=== PATIENT | male | born 1940 | race Caucasian/White ===

== ENCOUNTER 2019-10-04 20:22 | Inpatient (IN) | payer MEDICARE, SELFPAY ==
--- NOTE | ~2019-10-04 | US_ITS ---
EXAMINATION: US venous doppler [facility] DATE: 10/05/2019 09:49 INDICATION: Left calf swelling. TECHNIQUE: Grayscale ultrasound images without and with compression and Doppler ultrasound images of the bilateral lower extremity veins were obtained. COMPARISON: None. FINDINGS: The visualized portions of right common femoral vein, profunda (deep) femoral vein, femoral vein, pop liteal vein, peroneal veins, posterior tibial veins, and greater saphenous vein outflow are patent. S ubcutaneous edema is noted. The visualized portions of left common femoral vein, profunda femoral vein, femoral vein, popliteal v ein, peroneal veins, posterior tibial veins, and greater saphenous vein outflow are patent. Subcutane ous edema is noted. IMPRESSION: 1. No deep venous thrombosis. Reviewed, dictated and finalized at location A.
[2019-10-04 20:29] VITALS: BP 121/44; PULSE 94; RESP 18; TEMP 37.6; O2SAT 95
--- NOTE | 2019-10-04 20:55 | ED.EXTPRO ---
HPI - Extremity Problem General Chief complaint: Extremity Problem,Nontraumatic Stated complaint: left leg pain/sore/swelling/red Time Seen by Provider: 10/04/19 20:26 Source: old records reviewed History of Present Illness HPI Narrative: Patient presents emergency department from home via EMS for swelling and redness to the left lower leg. Patient states symptoms been progressively worsening over the past 2 weeks. He notes redness with a few small open wounds over the left lower leg. States that there is some pain to this area. He denies any fevers or chills chest pain shortness of breath or any other symptoms. The patient is on Xarelto for a history of atrial fibrillation which she has been taking. Related Data Home Medications Medication Instructions Recorded Confirmed furosemide 40 mg tablet 40 mg PO DAILY 05/26/19 10/04/19 quetiapine 12.5 mg PO BID PRN 10/04/19 10/04/19 Allergies Allergy/AdvReac Type Severity Reaction Status Date / Time No Known Allergies Allergy Verified 10/04/19 23:10 Review of Systems Review of Systems: Narrative: Gen.: Denies fevers or chills ENT: Denies congestion Respiratory: Denies shortness of breath or cough CV: Denies chest pain or palpitations GI: Denies abdominal pain nausea, emesis or diarrhea Musculoskeletal: Reports swelling of the leg Neuro: Denies numbness, tingling, weakness or focal weakness Skin: See HPI Except as documented, all other systems reviewed and negative PMF Past Medical History Medical History (Updated 10/05/19 @ 01:11 by Cameron Sanders DO) Afib Asbestos exposure CHF (congestive heart failure) Current use of half-way anticoagulation History of CVA (cerebrovascular accident) HTN (hypertension) Type 2 diabetes mellitus without complications Surgical History Surgical History (Updated 10/05/19 @ 00:31 by Yandel Islas MD) History of appendectomy Family History Family History Sibling Family history of lung cancer Social History Social History Smoking packs per day: 0.5 Smoking cigarettes per day: 10.0 Years smoked: 3 Smoking pack-years: 1.50 Smoking status: Former smoker Tobacco type: cigarettes Smoking end date: 03/29/1959 Alcohol intake: current Drinks per week: 14 Substance use: never Substance use type: does not use Gender identity (if verbalized by the patient): Male Spiritual care concerns: No Exam Narrative: Exam Narrative: APPEARANCE: No acute distress, nontoxic, resting in bed EYES: EOMI HEENT: Normocephalic, atraumatic, OMM RESPIRATORY: No respiratory distress Clear to auscultation bilaterally with no rhonchi wheezing or rales. CARDIOVASCULAR: Regular rate and rhythm without murmurs rubs or gallops. ABDOMINAL: Soft, nontender, nondistended, no rebound or guarding MUSCULOSKELETAl: Moves all extremities. No clubbing, cyanosis 3+ edema in the left lower extremity NEURO: Awake and alert. Following commands, speech normal, no focal deficits SKIN:: Warm, dry. Erythema of the left lower extremity just proximal to the ankle up to just distal to the knee over the anterior medial lateral leg with several small superficial open wounds PSYCHIATRIC: Normal affect/mood, Course Course Emergency Course: Discussed with Dr. Islas presentation work-up. Agrees admission at this time Discussed with patient and family results of workup and diagnosis. Discussed need for admission. Patient and family understand and agree to current treatment plan Vital Signs Vital signs: Vital Signs Temperature 99.6 F 10/04/19 20:29 Pulse Rate 94 10/04/19 20:29 Respiratory Rate 18 10/04/19 20:29 Blood Pressure 121/44 L 10/04/19 20:29 Pulse Oximetry 95 10/04/19 20:29 Temperature 98.4 F 10/04/19 22:46 Pulse Rate 79 10/04/19 22:46 Respiratory Rate 16 10/04/19 22:46 Blood Pressure 145/86 H 10/04/19 2
[2019-10-04 21:05] LABS: Basophils Absolute Auto 0.1 K/mm3 (0.0-0.1); Eosinophils Absolute Auto 0.3 K/mm3 (0-0.3); Eosinophils Percent Auto 4.3 % (0-4.4); Hematocrit 41.1 % (42.0-52.0); Immature Granulocyte Absolute 0.04 K/mm3 (0.00-0.031); Immature Granulocyte Percent A 0.7 % (0-0.5); Lymphocytes Absolute Auto 1.33 K/mm3 (0.9-3.2); Lymphocytes Percent Auto 21.8 % (18.3-44.2); Mean Corpuscular HGB Conc 34.1 g/dl (32-36); Mean Corpuscular Hemoglobin 32.7 pg (26-34); Mean Platelet Volume 10.9 fl (7.4-10.4); Monocytes Absolute Auto 0.8 K/mm3 (0.1-0.6); Monocytes Percent Auto 13.4 % (2.6-8.5); Neutrophils Absolute Auto 3.6 K/mm3 (1.3-6.7); Neutrophils Percent Auto 58.8 % (45.5-73.1); Platelet Count Result 181 k/mm3 (150-375); Red Blood Count 4.28 M/mm3 (4.6-6.20); Red Cell Distribution Width 13.6 % (11.5-14.5); White Blood Count 6.1 K/mm3 (4.5-10.0)
[2019-10-04 21:15] LABS: INR 1.7; Prothrombin Time 19.8 Seconds (11.1-14.7)
[2019-10-04 21:16] LABS: Lactic Acid Reflex 3.7 mmol/L (0.7-2.1)
[2019-10-04 21:17] LABS: Alanine Aminotransferase 24 U/L (4-50); Albumin Level 4.2 g/dL (3.5-5.1); Alkaline Phosphatase 79 U/L (38-126); Aspartate Amino Transferase 32 U/L (17-59); Bilirubin,Total 0.6 mg/dL (0.2-1.3); Blood Urea Nitrogen 17 mg/dL (9-20); Calcium 8.9 mg/dL (8.4-10.2); Carbon Dioxide 24 mmol/L (22-30); Chloride 101 mmol/L (98-107); Estimated CRCL calculation 81 ml/min; Estimated Glomerular Filt Rate > 60; Glucose 207 mg/dL (75-110); Sodium 136 mmol/L (137-145)
[2019-10-04] MEDS: SODIUM CHLORIDE 0.9% IV 1,000 ML 999 ML IV CONT (22:08)
--- NOTE | 2019-10-04 22:35 | ADMGEN ---
This patient, Alberto Rasmussen, was admitted to 3 [facility] Surg Room 303-01. Patient/family oriented to hospital policies and general routines including ID bracelet, bed and alarms, visiting hours, pain management, procedures, bathroom and other care routines, personal items, smoking policy, room service/diet, and visiting hours. Valuables list has been completed. Information on how to activate the Rapid Response Team has been discussed. Patient/Family are encouraged to report perceived risks to care and to ask questions if they do not understand what they are told or what they should do.
[2019-10-04 22:40] VITALS: BP 148/58; PULSE 62; RESP 20; TEMP 36.6; O2SAT 96
[2019-10-04 22:46] VITALS: BP 145/86; PULSE 79; RESP 16; TEMP 36.9; O2SAT 95
[2019-10-05 00:03] LABS: Reflex Lactic Acid Yes or No Add Lactic
--- NOTE | 2019-10-05 00:19 | PM.IMHP ---
H&P: HPI History of Present Illness Chief complaint: Left lower extremity cellulitis, lactic acidosis Narrative: This is a pleasant 78 year old Diabetic male with known paroxsymal atrial fibrillation on chronic Eliquis therapy, CHF, and HTN who presented to the hospital with a complaint of chronic LE swelling which he states worsened over the past month. The patient has not been able to sleep recently due to his increased discomfort of his legs. He reports that his left leg is more swollen and red compared to his right leg. The patient has not had any fever, chills, cough, shortness of breath, chest pain, abdominal pain, dysuria, hematuria, rectal bleeding or focal neurological symptoms. She was evaluated in the ER tonight and found to have an elevated lactic acid of 3.7. The patient was started on Ancef for possible cellulitis. He has no other complaints. Review of Systems Review of Systems: All systems reviewed & are unremarkable except as noted in HPI and below PMFSH Past Medical History Medical History Afib Asbestos exposure CHF (congestive heart failure) Current use of group home anticoagulation History of CVA (cerebrovascular accident) HTN (hypertension) Type 2 diabetes mellitus without complications Surgical History Surgical History History of appendectomy Family History Family History Sibling Family history of lung cancer Social History Social History Smoking packs per day: 0.5 Smoking cigarettes per day: 10.0 Years smoked: 3 Smoking pack-years: 1.50 Smoking status: Former smoker Tobacco type: cigarettes Smoking end date: 03/29/1959 Alcohol intake: current Drinks per week: 14 Substance use: never Substance use type: does not use Gender identity (if verbalized by the patient): Male Spiritual care concerns: No Meds Home Medications and Allergies Home Medications Medication Instructions Recorded Confirmed Type furosemide 40 mg tablet 40 mg PO DAILY 05/26/19 10/04/19 History diltiazem HCl 240 mg capsule,24 240 mg PO DAILY #90 cap 06/05/19 10/04/19 Rx hr,extended release rivaroxaban 20 mg tablet 20 mg PO QPM #90 tablet 06/05/19 10/04/19 Rx potassium chloride 20 mEq 20 meq PO DAILY #90 tablet 07/03/19 10/04/19 Rx tablet,extended release lisinopril 5 mg tablet 5 mg PO DAILY #90 tablet 08/03/19 10/04/19 Rx quetiapine 12.5 mg PO BID PRN 10/04/19 10/04/19 History Allergies Allergy/AdvReac Type Severity Reaction Status Date / Time No Known Allergies Allergy Verified 10/04/19 23:10 Vital Signs Vital Signs - 24 hr 10/04/19 20:29 10/04/19 22:40 10/04/19 22:46 Temperature 37.6 C 36.6 C 36.9 C Pulse Rate 94 62 79 Respiratory Rate 18 20 16 Blood Pressure 121/44 L 148/58 H 145/86 H Pulse Oximetry 95 96 95 Exam Const: General: cooperative, no acute distress, alert and awake Nutritional Appearance: obese morbidly obese Orientation/consciousness: patient oriented x3 HENMT: Head: normal to inspection General nose exam: Normal external nose present Face and sinus: normal facial exam Mouth: Yes Normal oral and palatal mucosa present and Yes oropharynx normal Eyes: Pupils: Equal, round and reactive pupils present EOM: EOMs intact bilaterally Neck: Neck: supple and no JVD Thyroid: thyroid normal Lymphatic: lymphadenopathy not noted Resp: Effort & Inspection: normal respiratory effort Auscultation: clear to auscultation bilaterally Cardio: Rate: regular rate Rhythm: regular rhythm Heart sounds: no murmurs GI: Inspection: normal to inspection Auscultation: normal bowel sounds Skin: General skin exam: erythema (B/L lower extremities++ ) and other ([place] appearance of LE b/L++ ) Neuro: General: patient oriented x3 Cranial nerves: Yes CN's
[2019-10-05] MEDS: SODIUM CHLORIDE 0.9% IV 1,000 ML 80 ML IV CONT ×2 (00:34→14:06)
[2019-10-05 00:49] LABS: Lactic Acid 2.1 mmol/L (0.7-2.1)
[2019-10-05] MEDS: QUEtiapine FUMARATE 12.5 MG TABLET PO ×2 (00:53→21:13)
[2019-10-05 06:00] VITALS: BP 108/46; PULSE 77; RESP 18; TEMP 36.6; O2SAT 97
[2019-10-05 06:40] LABS: Basophils Absolute Auto 0.1 K/mm3 (0.0-0.1); Basophils Percent Auto 0.9 % (0.2-1.2); Eosinophils Absolute Auto 0.3 K/mm3 (0-0.3); Hematocrit 39.4 % (42.0-52.0); Hemoglobin 13.4 g/dL (14.0-18.0); Immature Granulocyte Absolute 0.03 K/mm3 (0.00-0.031); Immature Granulocyte Percent A 0.5 % (0-0.5); Lymphocytes Absolute Auto 2.06 K/mm3 (0.9-3.2); Mean Corpuscular Hemoglobin 32.5 pg (26-34); Mean Corpuscular Volume 95.6 fl (80-100); Monocytes Absolute Auto 0.8 K/mm3 (0.1-0.6); Neutrophils Absolute Auto 3.2 K/mm3 (1.3-6.7); Neutrophils Percent Auto 49.6 % (45.5-73.1); Platelet Count Result 177 k/mm3 (150-375); Red Blood Count 4.12 M/mm3 (4.6-6.20); Red Cell Distribution Width 13.6 % (11.5-14.5); White Blood Count 6.4 K/mm3 (4.5-10.0)
[2019-10-05 06:50] LABS: Blood Urea Nitrogen 17 mg/dL (9-20); Calcium 8.4 mg/dL (8.4-10.2); Carbon Dioxide 28 mmol/L (22-30); Chloride 102 mmol/L (98-107); Estimated CRCL calculation 90 ml/min; Estimated Glomerular Filt Rate > 60; Glucose 136 mg/dL (75-110); Potassium 4.1 mmol/L (3.4-5.0); Sodium 136 mmol/L (137-145)
[2019-10-05 08:43] LABS: Glucose Point of Care 137 (65-105)
[2019-10-05 09:22] VITALS: BP 131/46; PULSE 67; O2SAT 99
[2019-10-05] MEDS: POTASSIUM CHLORIDE 20 MEQ TABLET.ER PO (09:25)
[2019-10-05] MEDS: lisinopriL 5 MG TABLET PO (09:25)
[2019-10-05] MEDS: FUROSEMIDE INJ 40 MG/4 ML VIAL 20 MG IV PUSH (10:35)
[2019-10-05 14:00] VITALS: BP 116/48; PULSE 101; RESP 18; TEMP 36.1; O2SAT 98
--- NOTE | 2019-10-05 14:24 | PM.IMPN ---
Progress Note: A&P Assessment and Plan (1) Leg edema: Code(s): R60.0 - Localized edema Status: Acute Assessment and Plan: r/o RLE cellultiis/DVT/edema - LE edema/erythema appear to be chronic as he has had this for over a month now. The patient has been started on IV antibiotics. Check LE doppler U/S in am. The pateint's RLE edema/erythema is likely secondary to chronic venous stasis. We will de-escalate antibiotics if lactic acid normalizes and the patient does not develope any worsening signs or symptoms of infection. 10/05/19 14:24 Patient is 78-year-old male with a history of chronic atrial fibrillation on Xarelto present presented emergency department with a complaint of bilateral lower extremity edema and erythema patient states his symptoms persisting for 2 weeks will swelling, blistering with some open wound and now getting worse concern the patient may have infection to his left lower leg presented emergency department further evaluation, patient started on Ancef, patient is a bilateral lower extremity edema concern patient may have exacerbation of CHF will switch his oral Lasix to IV Lasix, do cardiac echo and consult cake wrapper for further recommendation, patient on Xarelto for AFib concerned patient may have a DVT lower extremity Doppler was done which is negative (2) Elevated lactic acid level: Code(s): R79.89 - Other specified abnormal findings of blood chemistry Status: Acute Assessment and Plan: Check reflex lactic acid. Trending down (3) Type 2 diabetes mellitus without complications: Qualifiers: Diabetes mellitus fdc insulin use: without fdc use Qualified Code(s): E11.9 - Type 2 diabetes mellitus without complications Code(s): E11.9 - Type 2 diabetes mellitus without complications Status: Chronic Assessment and Plan: Accuchecks, SSI Coverage, Hypoglycemic protocol. (4) HTN (hypertension): Qualifiers: Hypertension type: unspecified Qualified Code(s): I10 - Essential (primary) hypertension Code(s): I10 - Essential (primary) hypertension Status: Chronic Assessment and Plan: Monitor blood pressure. Continue Lisinopril. (5) Afib: Qualifiers: Atrial fibrillation type: unspecified Qualified Code(s): I48.91 - Unspecified atrial fibrillation Code(s): I48.91 - Unspecified atrial fibrillation Status: Chronic Assessment and Plan: Continue Diltiazem and Xarelto. (6) CHF (congestive heart failure): Qualifiers: Heart failure type: unspecified Heart failure chronicity: chronic Qualified Code(s): I50.9 - Heart failure, unspecified Code(s): I50.9 - Heart failure, unspecified Status: Chronic Assessment and Plan: Continue Lasix therapy. Subjective Date/time seen: 10/05/19 14:24 Patient is 78-year-old male with a history of chronic atrial fibrillation on Xarelto present presented emergency department with a complaint of bilateral lower extremity edema and erythema patient states his symptoms persisting for 2 weeks will swelling, blistering with some open wound and now getting worse concern the patient may have infection to his left lower leg presented emergency department further evaluation, patient started on Ancef, patient is a bilateral lower extremity edema concern patient may have exacerbation of CHF will switch his oral Lasix to IV Lasix, do cardiac echo and consult cake wrapper for further recommendation, patient on Xarelto for AFib concerned patient may have a DVT lower extremity Doppler was done which is negative Review of Systems Review of Systems: All systems reviewed & are unremarkable except as noted in HPI and below Exam Narrative: Exam Narrative: Morbidly obese Const: General: comfortable and no acute distress HENMT: General nose exam: Normal nares present Eyes: Sclera: sclerae normal Neck: Neck: supple Resp: Other:
[2019-10-05 17:10] LABS: Glucose Point of Care 165 (65-105)
[2019-10-05 17:51] LABS: Glucose Point of Care 179 (65-105)
[2019-10-05] MEDS: RIVAROXABAN 20 MG TABLET PO (17:51)
[2019-10-05] MEDS: MELATONIN 3 MG TABLET PO (21:13)
[2019-10-05 22:00] VITALS: BP 112/52; PULSE 49; RESP 20; TEMP 36; O2SAT 97
[2019-10-05 22:45] LABS: Glucose Point of Care 150 (65-105)
--- NOTE | 2019-10-06 | ECHO_ITS ---
Patient Info Name: Alberto Rasmussen Age: 78 years : 1940 Gender: Male Ht: 71 in Wt: 291 lbs BSA: 2.63 m2 HR: 50 bpm BP: 104 / 42 mmHg Heart Rhythm: Atrial Fibrillation Technical Quality: Poor Exam Date: 10/06/2019 11:27 AM Exam Location: [facility] Pulmonary Patient Status: Inpatient Admit Date: 10/05/2019 Staff Ordering Physician: Cheikh Ornelas MD [employer] Operator: Zak Swanson, STEFFENCS, RT Attending Provider: Yandel Islas MD Exam Type: CA echo doppler color flow Study Info Indications I50.9 - Heart failure, unspecified Complete two-dimensional, color flow and Doppler transthoracic echocardiogram is performed with contrast to opacify the left ventricle and to improve the deliniation of the left ventricle endocardial borders. Summary 1. Left ventricular chamber dimension is normal. 2. Left ventricular systolic function is normal, estimated at 60-65%. 3. There is mild aortic valve regurgitation. 4. There is mild mitral valve regurgitation. 5. Severe biatrial dilation. 6. Compared with prior exam no significant change PA pressures on this exam are not elevated. Left Ventricle Left ventricular chamber dimension is normal. Left ventricular systolic function is normal, estimated at 60-65%. Right Ventricle Right ventricular chamber dimension is mildly enlarged. Left Atria Left atrial chamber dimension is severely enlarged. Right Atria Right atrial chamber dimension is severely enlarged. Aortic Valve The aortic valve is trileaflet. There is mild aortic valve sclerosis. There is mild aortic valve regurgitation. Pulmonic Valve The pulmonic valve is not well visualized. Mitral Valve The mitral valve has normal leaflets. There is mild mitral valve regurgitation. Tricuspid Valve The tricuspid valve leaflets are not well visualized. Pericardium/Pleural The pericardium appears normal. Aorta The aortic root size at the sinus of Valsalva is normal. Left Ventricular Outflow Tract Name Value Normal LVOT 2D LVOT Diameter 2.3 cm LVOT Doppler LVOT Peak Gradient 5 mmHg LVOT Mean Gradient 2 mmHg LVOT VTI 25 cm LVOT VTI/AV VTI Ratio 0.9 LVOT Stroke Volume 107 ml LVOT CO 6.0 l/min LVOT CI 2.3 l/min/m2 Pulmonic Valve Name Value Normal PV Doppler PV Peak Gradient 8 mmHg Mitral Valve Name Value Normal MV Doppler MV Decel Hettinger 359 cm/s2
[2019-10-06] MEDS: SODIUM CHLORIDE 0.9% IV 1,000 ML 80 ML IV CONT (03:07)
[2019-10-06 06:00] VITALS: BP 104/42; PULSE 109; RESP 20; TEMP 35.9; O2SAT 94
[2019-10-06 06:28] LABS: Hematocrit 39.9 % (42.0-52.0); Hemoglobin 13.4 g/dL (14.0-18.0); Mean Corpuscular HGB Conc 33.6 g/dl (32-36); Mean Corpuscular Hemoglobin 32.5 pg (26-34); Mean Corpuscular Volume 96.8 fl (80-100); Mean Platelet Volume 11.3 fl (7.4-10.4); Platelet Count Result 171 k/mm3 (150-375); Red Blood Count 4.12 M/mm3 (4.6-6.20); Red Cell Distribution Width 13.7 % (11.5-14.5); White Blood Count 7.1 K/mm3 (4.5-10.0)
[2019-10-06 06:38] LABS: Blood Urea Nitrogen 18 mg/dL (9-20); Calcium 8.3 mg/dL (8.4-10.2); Carbon Dioxide 26 mmol/L (22-30); Chloride 104 mmol/L (98-107); Estimated CRCL calculation 81 ml/min; Estimated Glomerular Filt Rate > 60; Glucose 137 mg/dL (75-110); Potassium 4.1 mmol/L (3.4-5.0); Sodium 136 mmol/L (137-145)
[2019-10-06 08:00] VITALS: BP 118/52; PULSE 50
[2019-10-06] MEDS: POTASSIUM CHLORIDE 20 MEQ TABLET.ER PO (08:15)
[2019-10-06] MEDS: lisinopriL 5 MG TABLET PO (08:16)
[2019-10-06] MEDS: FUROSEMIDE INJ 40 MG/4 ML VIAL IV PUSH (08:16)
[2019-10-06 08:37] LABS: Glucose Point of Care 140 (65-105)
[2019-10-06] MEDS: PERFLUTREN LIPID MICROSPHERES 1.5 ML VIAL DILUTED TO 10 ML TOTAL VOLUME IV PUSH (11:50)
[2019-10-06 12:46] LABS: Glucose Point of Care 150 (65-105)
--- NOTE | 2019-10-06 13:27 | PM.CNCAR ---
Assessment and Plan Additional Plan 78-year-old man with chronic permanent atrial fibrillation. For some reason I believe through an error at the PCP his diltiazem has been continued which I discontinued almost 1 year ago. 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 I will stop diltiazem at this time. An echocardiogram was requested for further evaluation of this was done this morning the results of that are pending at the time of this dictation. Systemic anticoagulation was Xarelto was appropriate and this should be continued. Ryan Turcios MD [facility] History of Present Illness History of Present Illness Consult date/time: 10/06/19 13:27 Consult reason: atrial fibrillation Reason For Visit: Left lower extremity cellulitis, lactic acidosis Narrative: This is a 78-year-old man with a history of chronic permanent atrial fibrillation who I follow in the office for a number of years. I seem seeing him today at the hospital at the request of the hospitalist. He came into the hospital this about 48 hours ago for treatment of what appears to be left lower extremity cellulitis and has been on antibiotics for that. He does have bilateral edema chronic appearing worse on the left than on the right and for this reason he was hospitalized. The patient has a history of chronic atrial fibrillation for number of years. I was seeing him in the office and treating him with rate control and anticoagulation. He was on Coumadin and then eventually shifted to Xarelto in more recent years. He was heart rate controlled with diltiazem. Over the years I have been reducing the dose of his diltiazem because as he has aged he has developed a nub seen I will AV node dysfunction where he no longer appeared to require medication for rate control. His last appointment with me in the office was in October of 2018 at which time I stopped the diltiazem altogether. He had a heart rate in the 60s and 70s with only 120 mg on board and so at that point it appeared clear to me he did not require this for rate control any longer. For reasons that are not clear to me, presumably erroneously he is back on diltiazem at 240 mg per day. It is the patient's recollection that this was resumed or renewed through his PCP appointment. He continues to take Xarelto for heart rate control and otherwise feels quite well. He does not have any symptoms of shortness of breath chest pain palpitations orthopnea or PND. His previous evaluation by echocardiogram has shown evidence of normal left ventricular systolic function, biatrial dilation and evidence of at least moderately elevated pulmonary artery pressures. He does carry the diagnosis of asbestosis which I am sure contributes to this as well. He is not on telemetry at this time Review of Systems Constitutional: Constitutional: Reports no additional constitutional complaints Eyes: Eyes: Reports no additional eye complaints ENT: Reports system reviewed and no additional complaints, except as documented Cardiovascular: Cardiovascular: Reports as per HPI Respiratory: Respiratory: Reports no additional respiratory complaints Gastrointestinal: Gastrointestinal: Reports no additional gastrointestinal complaints Musculoskeletal: Comments: Lower extremity edema as detailed above Neurologic: Reports system reviewed and no additional complaints, except as documented Endocrine: Endocrine: Reports no additional endocrine complaints Hematologic/Lymphatic: Hematologic/Lymphatic: Reports no additional hematologic/lymphatic complaints Allergic/Immunologic: Allergic/Immunologic: Reports no additional allergic/immunologic complaints PMFSH Past Medical History Medical History Afib Asbestos exposure CHF (congestive heart failure) Current use of keno terminal operator anticoagulation History of CVA
[2019-10-06 14:00] VITALS: BP 123/44; PULSE 63; RESP 18; TEMP 36.2; O2SAT 98
--- NOTE | 2019-10-06 16:10 | PM.IMPN ---
Progress Note: A&P Assessment and Plan (1) Leg edema: Code(s): R60.0 - Localized edema Status: Acute Assessment and Plan: r/o RLE cellultiis/DVT/edema - LE edema/erythema appear to be chronic as he has had this for over a month now. The patient has been started on IV antibiotics. Check LE doppler U/S in am. The pateint's RLE edema/erythema is likely secondary to chronic venous stasis. We will de-escalate antibiotics if lactic acid normalizes and the patient does not develope any worsening signs or symptoms of infection. 10/06/19 16:1 Patient is 78-year-old male with a history of chronic atrial fibrillation on Xarelto present presented emergency department with a complaint of bilateral lower extremity edema and erythema patient states his symptoms persisting for 2 weeks will swelling, blistering with some open wound and now getting worse concern the patient may have infection to his left lower leg presented emergency department further evaluation, patient started on Ancef, patient is a bilateral lower extremity edema concern patient may have exacerbation of CHF will switch his oral Lasix to IV Lasix, do cardiac echo and consult marzipan molder for further recommendation, patient on Xarelto for AFib concerned patient may have a DVT lower extremity Doppler was done which is negative, today patient was seen by his Cardiology stop the diltiazem as patient does not need rate controlled medication and this may have contributed lower extremity edema, his cardiac echo is essentially normal, will continue to diurese patient gently, patient is feeling better swelling in his lower extremities improved as well as cellulitis, denies any chest pain palpitation fever or chills (2) Elevated lactic acid level: Code(s): R79.89 - Other specified abnormal findings of blood chemistry Status: Acute Assessment and Plan: Check reflex lactic acid. Trending down (3) Type 2 diabetes mellitus without complications: Qualifiers: Diabetes mellitus terminal clerk insulin use: without residential use Qualified Code(s): E11.9 - Type 2 diabetes mellitus without complications Code(s): E11.9 - Type 2 diabetes mellitus without complications Status: Chronic Assessment and Plan: Accuchecks, SSI Coverage, Hypoglycemic protocol. (4) HTN (hypertension): Qualifiers: Hypertension type: unspecified Qualified Code(s): I10 - Essential (primary) hypertension Code(s): I10 - Essential (primary) hypertension Status: Chronic Assessment and Plan: Monitor blood pressure. Continue Lisinopril. (5) Afib: Qualifiers: Atrial fibrillation type: unspecified Qualified Code(s): I48.91 - Unspecified atrial fibrillation Code(s): I48.91 - Unspecified atrial fibrillation Status: Chronic Assessment and Plan: Continue Diltiazem and Xarelto. (6) CHF (congestive heart failure): Qualifiers: Heart failure type: unspecified Heart failure chronicity: chronic Qualified Code(s): I50.9 - Heart failure, unspecified Code(s): I50.9 - Heart failure, unspecified Status: Chronic Assessment and Plan: Continue Lasix therapy. Subjective Date/time seen: 10/06/19 16:1 Patient is 78-year-old male with a history of chronic atrial fibrillation on Xarelto present presented emergency department with a complaint of bilateral lower extremity edema and erythema patient states his symptoms persisting for 2 weeks will swelling, blistering with some open wound and now getting worse concern the patient may have infection to his left lower leg presented emergency department further evaluation, patient started on Ancef, patient is a bilateral lower extremity edema concern patient may have exacerbation of CHF will switch his oral Lasix to IV Lasix, do cardiac echo and consult marzipan molder for further recommendation, patient on Xarelto for AFib concerned patient may have a DVT lower e
[2019-10-06] MEDS: RIVAROXABAN 20 MG TABLET PO (17:33)
[2019-10-06 17:57] LABS: Glucose Point of Care 158 (65-105)
[2019-10-06] MEDS: MELATONIN 3 MG TABLET PO (21:01)
[2019-10-06] MEDS: QUEtiapine FUMARATE 12.5 MG TABLET PO (21:01)
[2019-10-06 22:00] VITALS: BP 125/46; PULSE 56; RESP 20; TEMP 37; O2SAT 96
[2019-10-06 22:05] LABS: Glucose Point of Care 189 (65-105)
[2019-10-07 06:00] VITALS: BP 132/51; PULSE 61; RESP 18; TEMP 36.4; O2SAT 96
[2019-10-07 06:18] LABS: Hematocrit 40.7 % (42.0-52.0); Hemoglobin 13.8 g/dL (14.0-18.0); Mean Corpuscular HGB Conc 33.9 g/dl (32-36); Mean Corpuscular Hemoglobin 32.5 pg (26-34); Mean Corpuscular Volume 95.8 fl (80-100); Platelet Count Result 166 k/mm3 (150-375); Red Blood Count 4.25 M/mm3 (4.6-6.20); Red Cell Distribution Width 13.5 % (11.5-14.5); White Blood Count 6.6 K/mm3 (4.5-10.0)
[2019-10-07 06:36] LABS: Potassium 3.8 mmol/L (3.4-5.0)
[2019-10-07 06:45] LABS: Blood Urea Nitrogen 19 mg/dL (9-20); Calcium 8.6 mg/dL (8.4-10.2); Carbon Dioxide 25 mmol/L (22-30); Chloride 107 mmol/L (98-107); Estimated CRCL calculation 81 ml/min; Estimated Glomerular Filt Rate > 60; Glucose 136 mg/dL (75-110); Sodium 137 mmol/L (137-145)
[2019-10-07] MEDS: lisinopriL 5 MG TABLET PO (08:18)
[2019-10-07] MEDS: FUROSEMIDE INJ 40 MG/4 ML VIAL IV PUSH (08:18)
[2019-10-07] MEDS: POTASSIUM CHLORIDE 20 MEQ TABLET.ER PO (08:18)
[2019-10-07 08:35] LABS: Glucose Point of Care 146 (65-105)
--- NOTE | 2019-10-07 10:37 | PM.PNCARD ---
Progress Note: A&P Additional Plan 78-year-old man with chronic atrial fibrillation. 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 For this reason I stopped the diltiazem prescription yesterday I had taken him off that medication almost a year ago. Systemic anticoagulation with Xarelto is appropriate and will be continued. No other cardiac recommendations no cardiac reason he cannot be discharged Ryan Turcios MD [facility] Subjective Date/time seen: Date of service: 10/07/19 10:37 Interval history: Follow-up visit in 78-year-old man with chronic atrial fibrillation. Patient is asymptomatic dressed in his street clothes preparing for discharge Exam Const: General: comfortable and no acute distress HENMT: Mouth: Yes moist mucous membranes Eyes: Sclera: sclerae normal Pupils: Equal, round and reactive pupils present Neck: Neck: supple and no JVD Resp: Effort & Inspection: normal respiratory effort Auscultation: clear to auscultation bilaterally Cardio: Rate: regular rate Rhythm: abnormal rhythm irregularly irregular GI: Auscultation: normal bowel sounds Other: Abdomen obese but benign Skin: General skin exam: normal color Neuro: Cognition (Neuro): normal cognition Extrem: General: normal to inspection Objective Data Vital Signs Vital Signs: Vital Signs - 24 hr 10/06/19 14:00 10/06/19 22:00 10/07/19 06:00 Temperature 36.2 C L 37.0 C 36.4 C Pulse Rate 63 56 L 61 Respiratory Rate 18 20 18 Blood Pressure 123/44 L 125/46 L 132/51 L Pulse Oximetry 98 96 96 Intake/Output Intake/Output: Intake & Output 10/04/19 10/05/19 10/06/19 10/07/19 23:59 23:59 23:59 23:59 Intake Total 50 2150 2466 600 Output Total 2850 800 Balance 50 2150 384 -200 Meds/Results Medications: Active Medications Generic Name Dose Route Start Last Admin Trade Name Freq PRN Reason Stop Dose Admin Dextrose 12.5 gm 10/05/19 00:09 Dextrose 50% Syringe IV PUSH PRN PRN Hypoglycemia Protocol Furosemide 40 mg 10/06/19 09:00 10/07/19 08:18 Lasix Inj IV PUSH 40 mg DAILY HOA Administration Glucagon 1 mg 10/05/19 00:09 Glucagon For Inj IM PRN PRN Hypoglycemia Protocol Glucose 15 gm 10/05/19 00:09 Glutose 15 PO PRN PRN Hypoglycemia Protocol Cefazolin Sodium 1 gm in 50 mls @ 100 mls/hr 10/05/19 06:00 10/07/19 05:50 Ancef 1 Gm/D5w 50 Ml Pm IVPB Infused Q8HR HOA Infusion Dextrose 1,000 mls @ 100 mls/hr 10/05/19 00:09 Dextrose 5% 1,000 Ml IVPB PRN PRN Hypoglycemia Protocol Insulin Aspart 2 - 5 units 10/05/19 08:00 10/07/19 08:18 Novolog SUB-Q Not Given TIDWM HOA Protocol Lisinopril 5 mg 10/05/19 09:00 10/07/19 08:18 Prinivil PO 5 mg DAILY HOA Administration Melatonin 3 mg 10/05/19 20:37 10/06/19 21:01 Melatonin PO 3 mg HS PRN Administration Sleep Potassium Chloride 20 meq 10/05/19 08:00 10/07/19 08:18 Kcl Tablet PO 20 meq DAILY@0800 HOA Administration Quetiapine Fumarate 12.5 mg 10/05/19 00:43 10/06/19 21:01 Seroquel PO 12.5 mg BID PRN Administration Agitation Rivaroxaban 20 mg 10/05/19 18:00 10/06/19 17:33 Xarelto PO 20 mg QPM HOA Administration Radiology Results: ITS Impressions Venous Doppler Study 10/05/19 09:54 IMPRESSION: 1. No deep venous thrombosis. Labs Labs: Laboratory Results - last 24 hr 10/06/19 10/06/19 10/06/19 12:38 17:55 21:05 WBC RBC Hgb Hct MCV MCH MCHC RDW Plt Count MPV Sodium Potassium Chloride Carbon Dioxide BUN Creatinine Estim Creat Clear Calc Estimated GFR Glucose POC Capillary Glucose 150 H 158 H 189 H Calcium 10/07/19 10/07/19 10/07/19 05:41 05:41 08:17 WBC 6.6 RBC 4.25 L Hgb 13.8 L Hct
--- NOTE | 2019-10-07 11:54 | PM.IMPN ---
Progress Note: A&P Assessment and Plan (1) Leg edema: Code(s): R60.0 - Localized edema Status: Acute Assessment and Plan: r/o RLE cellultiis/DVT/edema - LE edema/erythema appear to be chronic as he has had this for over a month now. The patient has been started on IV antibiotics. Check LE doppler U/S in am. The pateint's RLE edema/erythema is likely secondary to chronic venous stasis. We will de-escalate antibiotics if lactic acid normalizes and the patient does not develope any worsening signs or symptoms of infection. 10/06/19 16:1 Patient is 78-year-old male with a history of chronic atrial fibrillation on Xarelto present presented emergency department with a complaint of bilateral lower extremity edema and erythema patient states his symptoms persisting for 2 weeks will swelling, blistering with some open wound and now getting worse concern the patient may have infection to his left lower leg presented emergency department further evaluation, patient started on Ancef, patient is a bilateral lower extremity edema concern patient may have exacerbation of CHF will switch his oral Lasix to IV Lasix, do cardiac echo and consult otolaryngology rep for further recommendation, patient on Xarelto for AFib concerned patient may have a DVT lower extremity Doppler was done which is negative, today patient was seen by his Cardiology stop the diltiazem as patient does not need rate controlled medication and this may have contributed lower extremity edema, his cardiac echo is essentially normal, will continue to diurese patient gently, patient is feeling better swelling in his lower extremities improved as well as cellulitis, denies any chest pain palpitation fever or chills (2) Elevated lactic acid level: Code(s): R79.89 - Other specified abnormal findings of blood chemistry Status: Acute Assessment and Plan: Check reflex lactic acid. Trending down (3) Type 2 diabetes mellitus without complications: Qualifiers: Diabetes mellitus detention insulin use: without detention use Qualified Code(s): E11.9 - Type 2 diabetes mellitus without complications Code(s): E11.9 - Type 2 diabetes mellitus without complications Status: Chronic Assessment and Plan: Accuchecks, SSI Coverage, Hypoglycemic protocol. (4) HTN (hypertension): Qualifiers: Hypertension type: unspecified Qualified Code(s): I10 - Essential (primary) hypertension Code(s): I10 - Essential (primary) hypertension Status: Chronic Assessment and Plan: Monitor blood pressure. Continue Lisinopril. (5) Afib: Qualifiers: Atrial fibrillation type: unspecified Qualified Code(s): I48.91 - Unspecified atrial fibrillation Code(s): I48.91 - Unspecified atrial fibrillation Status: Chronic Assessment and Plan: Continue Diltiazem and Xarelto. (6) CHF (congestive heart failure): Qualifiers: Heart failure type: unspecified Heart failure chronicity: chronic Qualified Code(s): I50.9 - Heart failure, unspecified Code(s): I50.9 - Heart failure, unspecified Status: Chronic Assessment and Plan: Continue Lasix therapy. Additional Plan Date of service was 10/04/2019 at 22:00 hrs. Subjective Date/time seen: 10/07/19 11:54 Objective Data Vital Signs Vital Signs: Vital Signs - 24 hr 10/06/19 14:00 10/06/19 22:00 10/07/19 06:00 Temperature 97.1 F L 98.6 F 97.6 F Pulse Rate 63 56 L 61 Respiratory Rate 18 20 18 Blood Pressure 123/44 L 125/46 L 132/51 L Pulse Oximetry 98 96 96 Intake/Output Intake/Output: Intake & Output 10/04/19 10/05/19 10/06/19 10/07/19 23:59 23:59 23:59 23:59 Intake Total 50 2150 2466 840 Output Total 2850 800 Balance 50 2150 -384 40 Meds/Results Medications: Active Medications Generic Name Dose Route Start Last Admin Trade Name Freq PRN Reason Stop Dose Admin Dextrose 12.5 gm 10/05/19 00:09 De
--- NOTE | 2019-10-20 09:04 | PM.DS ---
DS: Admitting Diagnosis Admitting Diagnosis Admitting Diagnosis: Localized edema DS: Discharge Diagnosis Discharge Diagnosis (1) Leg edema: Code(s): R60.0 - Localized edema Status: Acute Assessment and Plan: r/o RLE cellultiis/DVT/edema - LE edema/erythema appear to be chronic as he has had this for over a month now. The patient has been started on IV antibiotics. Check LE doppler U/S in am. The pateint's RLE edema/erythema is likely secondary to chronic venous stasis. We will de-escalate antibiotics if lactic acid normalizes and the patient does not develope any worsening signs or symptoms of infection. 10/06/19 16:1 Patient is 78-year-old male with a history of chronic atrial fibrillation on Xarelto present presented emergency department with a complaint of bilateral lower extremity edema and erythema patient states his symptoms persisting for 2 weeks will swelling, blistering with some open wound and now getting worse concern the patient may have infection to his left lower leg presented emergency department further evaluation, patient started on Ancef, patient is a bilateral lower extremity edema concern patient may have exacerbation of CHF will switch his oral Lasix to IV Lasix, do cardiac echo and consult sample patternmaker for further recommendation, patient on Xarelto for AFib concerned patient may have a DVT lower extremity Doppler was done which is negative, today patient was seen by his Cardiology stop the diltiazem as patient does not need rate controlled medication and this may have contributed lower extremity edema, his cardiac echo is essentially normal, will continue to diurese patient gently, patient is feeling better swelling in his lower extremities improved as well as cellulitis, denies any chest pain palpitation fever or chills (2) Elevated lactic acid level: Code(s): R79.89 - Other specified abnormal findings of blood chemistry Status: Acute Assessment and Plan: Check reflex lactic acid. Trending down (3) Type 2 diabetes mellitus without complications: Qualifiers: Diabetes mellitus halfway insulin use: without rn long term care use Qualified Code(s): E11.9 - Type 2 diabetes mellitus without complications Code(s): E11.9 - Type 2 diabetes mellitus without complications Status: Chronic Assessment and Plan: Accuchecks, SSI Coverage, Hypoglycemic protocol. (4) HTN (hypertension): Qualifiers: Hypertension type: unspecified Qualified Code(s): I10 - Essential (primary) hypertension Code(s): I10 - Essential (primary) hypertension Status: Chronic Assessment and Plan: Monitor blood pressure. Continue Lisinopril. (5) Afib: Qualifiers: Atrial fibrillation type: unspecified Qualified Code(s): I48.91 - Unspecified atrial fibrillation Code(s): I48.91 - Unspecified atrial fibrillation Status: Chronic Assessment and Plan: Continue Diltiazem and Xarelto. (6) CHF (congestive heart failure): Qualifiers: Heart failure type: unspecified Heart failure chronicity: chronic Qualified Code(s): I50.9 - Heart failure, unspecified Code(s): I50.9 - Heart failure, unspecified Status: Chronic Assessment and Plan: Continue Lasix therapy. DS: Summary Hospital Course Reason for hospitalization: Narrative: This is a pleasant 78 year old Diabetic male with known paroxsymal atrial fibrillation on chronic Eliquis therapy, CHF, and HTN who presented to the hospital with a complaint of chronic LE swelling which he states worsened over the past month. The patient has not been able to sleep recently due to his increased discomfort of his legs. He reports that his left leg is more swollen and red compared to his right leg. The patient has not had any fever, chills, cough, shortness of breath, chest pain, abdominal pain, dysuria, hematuria, rectal bleeding or focal neurological symptoms. S
== END 2019-10-07 13:10 | disposition home or self-care (01) | DRG 303 ==
LOC: ANHED 21:58 → ANH3MEDSUR 22:06
PROVIDERS: Admitting Provider Family Medicine; Emergency Provider Emergency Medicine; PCP Family Medicine; Visit Provider Family Medicine
DX: I87.8 Other specified disorders of veins (principal); R60.0 Localized edema; I48.0 Paroxysmal atrial fibrillation; I11.0 Hypertensive heart disease with heart failure; I50.9 Heart failure, unspecified; Z79.01 Long term (current) use of anticoagulants; Z86.73 Personal history of transient ischemic attack (TIA), and cerebral infarction without residual deficits; Z87.891 Personal history of nicotine dependence; E11.9 Type 2 diabetes mellitus without complications; R79.89 Other specified abnormal findings of blood chemistry
CPT/HCPCS: 36415; 80048; 80053; 83605; 85025; 85027; 85610; 85730; 87040; 93306; 93970; 96361; 96365; 96375; 99285; A9270; G0378; J0690; J1940; J7030; Q9957

== ENCOUNTER 2020-06-09 23:47 | Emergency (ER) | payer MEDICARE, SELFPAY ==
[2020-06-09 23:46] VITALS: BP 137/57; PULSE 79; RESP 18; O2SAT 96
[2020-06-09 23:52] VITALS: TEMP 36.6
--- NOTE | 2020-06-10 00:28 | ED.GENADULT ---
HPI - General Adult General Chief complaint: Extremity Problem,Nontraumatic Stated complaint: R ankle bleeding Time Seen by Provider: 06/09/20 23:55 History of Present Illness HPI narrative: Patient is a 79-year-old gentleman who presents the emergency department with chief complaint of bleeding from his lower extremity. The patient reports that he was laying in bed suddenly felt something wet in the bed thought that he originally urinated on himself. The patient then looked down and noticed there was blood present on the sheets. Patient noticed there is an area in his right lower extremity that was pumping blood out. Patient denies trauma denies being on anticoagulants reports that he does have some spider veins/varicose veins on his lower extremities. Related Data Home Medications Medication Instructions Recorded Confirmed furosemide 40 mg tablet 40 mg PO DAILY 05/26/19 05/01/20 Allergies Allergy/AdvReac Type Severity Reaction Status Date / Time No Known Allergies Allergy Verified 05/01/20 14:12 Review of Systems Review of Systems: Narrative: A 10 system review of systems was completed on the patient and is negative except for what is stated in the HPI. Nursing and ancillary documentation was reviewed. [facility] Past Medical History Medical History (Updated 06/10/20 @ 00:33 by Sami Couch MD) Afib Asbestos exposure CHF (congestive heart failure) Current use of [facility] anticoagulation History of CVA (cerebrovascular accident) HTN (hypertension) Type 2 diabetes mellitus without complications Surgical History Surgical History History of appendectomy Family History Family History Sibling Family history of lung cancer Social History Social History Social History: Smoking packs per day: 0.5 Smoking cigarettes per day: 10.0 Years smoked: 3 Smoking pack-years: 1.50 Smoking status: Former smoker Tobacco type: cigarettes Second hand tobacco smoke exposure: No Smoking end date: 03/29/1959 Alcohol intake: current Drinks per week: 14 Substance use: never Substance use type: does not use Gender identity (if verbalized by the patient): Male Spiritual care concerns: No Exam Narrative: Exam Narrative: GENERAL: Well-appearing, well-nourished, and in no acute distress. HEAD: Normocephalic, atraumatic. EYES: PERRLA and EOMI. ENT: Nares clear, no rhinorrhea or epistaxis. Mucous membranes moist. NECK: Supple. CHEST: Clear to auscultation. No respiratory distress. HEART: Regular rate and rhythm. No murmur heard. Normal peripheral pulses. ABDOMEN: Soft, nontender, nondistended, normal active bowel sounds. EXTREMITIES: Normal range of motion. No edema. There are multiple small varicosities on the right lower extremity and left lower extremity. There is a small ulceration above one of the varicosities on the right lower extremity just superior to the ankle. This area is actively bleeding when pressure is not applied to it. SKIN: Warm, dry, no rash. NEURO: No focal deficits. Alert and oriented x3. PSYCH: Normal mood and affect. Course Vital Signs Vital signs: Vital Signs Pulse Rate 79 06/09/20 23:46 Respiratory Rate 18 06/09/20 23:46 Blood Pressure 137/57 L 06/09/20 23:46 Pulse Oximetry 96 06/09/20 23:46 Temperature 36.6 C 06/09/20 23:52 Pulse Rate 79 06/09/20 23:46 Respiratory Rate 18 06/09/20 23:46 Blood Pressure 137/57 L 06/09/20 23:46 Pulse Oximetry 96 06/09/20 23:46 Procedures Laceration Laceration 1: Date: 06/10/20 Time: 00:30 Site: lower extremity (Right lower extremity in a varicose vein) Side (If applicable): right Size (cm): 0.25 Description: other (Puncture) Depth: simple, sin
--- NOTE | 2020-06-10 00:47 | PC.NURSE ---
spoke with pt's grandson (Alfonso [phone]) who says he is on his way to picker and packer pt.
--- NOTE | 2020-06-10 01:01 | PC.NURSE ---
surgicell placed on pt's right foot and wrapped with an cee wrap.
[2020-06-10 01:25] VITALS: BP 128/55; PULSE 78; RESP 20; O2SAT 96
== END 2020-06-10 01:27 | disposition home or self-care (01) ==
PROVIDERS: Emergency Provider Emergency Medicine; PCP Family Medicine
DX: I83.891 Varicose veins of right lower extremity with other complications (principal); I48.91 Unspecified atrial fibrillation; Z79.01 Long term (current) use of anticoagulants; I50.9 Heart failure, unspecified; Z86.73 Personal history of transient ischemic attack (TIA), and cerebral infarction without residual deficits; I11.0 Hypertensive heart disease with heart failure; E11.9 Type 2 diabetes mellitus without complications; Z87.891 Personal history of nicotine dependence
CPT/HCPCS: 12001; 99282

== ENCOUNTER 2020-07-22 08:09 | Emergency (ER) | payer MEDICARE, SELFPAY ==
[2020-07-22 08:08] VITALS: BP 125/59; PULSE 82; RESP 18; TEMP 36.3; O2SAT 95
--- NOTE | 2020-07-22 09:30 | ED.GENADULT ---
HPI - General Adult General Chief complaint: Unspecified Stated complaint: FOOT BLEEDING Time Seen by Provider: 07/22/20 08:28 Source: patient Mode of arrival: ambulatory Limitations: no limitations History of Present Illness HPI narrative: 79-year-old with a history of hypertension, diabetes, multiple superficial spider veins in the lower extremities here with complaints of bleeding from the right foot area since this morning. Patient states that he was here a few weeks ago for the same had 3 sutures placed this morning he woke up in a puddle of blood. He denies any trauma. No other complaints expressed at this time. Onset (ago): hour(s) (2) Location: lower extremity Radiation: non-radiation Severity: moderate Exacerbating factors: none Associated symptoms: denies other symptoms Related Data Allergies Allergy/AdvReac Type Severity Reaction Status Date / Time No Known Allergies Allergy Verified 07/22/20 08:14 Review of Systems Review of Systems: All systems reviewed & are unremarkable except as noted in HPI and below Constitutional: Constitutional: Reports no additional constitutional complaints Eyes: Eyes: Reports no additional eye complaints ENT: Reports system reviewed and no additional complaints, except as documented Cardiovascular: Cardiovascular: Reports no additional cardiovascular complaints Respiratory: Respiratory: Reports no additional respiratory complaints Gastrointestinal: Gastrointestinal: Reports no additional gastrointestinal complaints Musculoskeletal: Musculoskeletal: Reports as per HPI Neurologic: Reports system reviewed and no additional complaints, except as documented PMF Past Medical History Medical History (Updated 07/22/20 @ 09:54 by Kyler Mock MD) Afib Asbestos exposure CHF (congestive heart failure) Current use of fdc anticoagulation History of CVA (cerebrovascular accident) HTN (hypertension) Type 2 diabetes mellitus without complications Surgical History Surgical History History of appendectomy Family History Family History Sibling Family history of lung cancer Social History Social History Social History: Smoking packs per day: 0.5 Smoking cigarettes per day: 10.0 Years smoked: 3 Smoking pack-years: 1.50 Smoking status: Former smoker Tobacco type: cigarettes Second hand tobacco smoke exposure: No Smoking end date: 03/29/1959 Alcohol intake: current Drinks per week: 14 Substance use: never Substance use type: does not use Gender identity (if verbalized by the patient): Male Spiritual care concerns: No Exam Narrative: Exam Narrative: GENERAL: Well-appearing, obese, and in no acute distress. HEAD: Normocephalic, atraumatic. EYES: PERRLA and EOMI. NECK: Supple. CHEST: Clear to auscultation. No respiratory distress. HEART: Regular rate and rhythm. No murmur heard. Normal peripheral pulses. ABDOMEN: Soft, nontender, nondistended, normal active bowel sounds. EXTREMITIES: Normal range of motion. No edema. has multiple spider veins on both lower ext. no active bleeding at this time a small vessel cloted . SKIN: Warm, dry, no rash. NEURO: No focal deficits. Alert and oriented x3. PSYCH: Normal mood and affect. Course Vital Signs Vital signs: Vital Signs Temperature 36.3 C L 07/22/20 08:08 Pulse Rate 82 07/22/20 08:08 Respiratory Rate 18 07/22/20 08:08 Blood Pressure 125/59 L 07/22/20 08:08 Pulse Oximetry 95 07/22/20 08:08 Temperature 36.3 C L 07/22/20 08:08 Pulse Rate 82 07/22/20 08:08 Respiratory Rate 18 07/22/20 08:08 Blood Pressure 125/59 L 07/22/20 08:08 Pulse Oximetry 95 07/22/20 08:08 Medical Decision Making Vital Signs Vital Signs: Vital Signs Temperature 36.3 C L 07/22/20 08:08 Pulse Rate 82 0
[2020-07-22 10:06] VITALS: BP 123/62; PULSE 84; RESP 18; O2SAT 96
== END 2020-07-22 10:07 | disposition home or self-care (01) ==
PROVIDERS: Emergency Provider Family Medicine; PCP Family Medicine
DX: I83.891 Varicose veins of right lower extremity with other complications (principal); Z87.891 Personal history of nicotine dependence; I48.91 Unspecified atrial fibrillation; I11.0 Hypertensive heart disease with heart failure; I50.9 Heart failure, unspecified; E11.9 Type 2 diabetes mellitus without complications; Z86.73 Personal history of transient ischemic attack (TIA), and cerebral infarction without residual deficits; Z79.01 Long term (current) use of anticoagulants
CPT/HCPCS: 99282

== ENCOUNTER 2020-08-01 01:20 | Emergency (ER) | payer MEDICARE, SELFPAY ==
[2020-08-01 01:21] VITALS: BP 97/52; PULSE 88; RESP 18; TEMP 36.3; O2SAT 98
--- NOTE | 2020-08-01 01:45 | ED.GENADULT ---
HPI - General Adult General Chief complaint: Wound/Laceration Stated complaint: foot lac Time Seen by Provider: 08/01/20 01:31 History of Present Illness HPI narrative: Patient is a 79-year-old gentleman who presents the emergency department with chief complaint of bleeding varicose vein. Patient states that he had sudden onset of bleeding from a varicose vein on his right lower extremity. Patient states there was a large amount of blood loss and blood was flowing out of his leg under high pressure. 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 Patient reports he had issues with varicose veins before in the past. Related Data Allergies Allergy/AdvReac Type Severity Reaction Status Date / Time No Known Allergies Allergy Verified 07/24/20 11:10 Review of Systems Review of Systems: Narrative: A 10 system review of systems was completed on the patient and is negative except for what is stated in the HPI. Nursing and ancillary documentation was reviewed. [facility] Past Medical History Medical History (Updated 08/01/20 @ 02:12 by Sami Couch MD) Afib Asbestos exposure CHF (congestive heart failure) Current use of estimator binding anticoagulation History of CVA (cerebrovascular accident) HTN (hypertension) Type 2 diabetes mellitus without complications Surgical History Surgical History History of appendectomy Family History Family History Sibling Family history of lung cancer Social History Social History Social History: Smoking packs per day: 0.5 Smoking cigarettes per day: 10.0 Years smoked: 3 Smoking pack-years: 1.50 Smoking status: Former smoker Tobacco type: cigarettes Second hand tobacco smoke exposure: No Smoking end date: 03/29/1959 Alcohol intake: current Drinks per week: 14 Substance use: never Substance use type: does not use Gender identity (if verbalized by the patient): Male Spiritual care concerns: No Exam Narrative: Exam Narrative: GENERAL: Well-appearing, well-nourished, and in no acute distress. HEAD: Normocephalic, atraumatic. EYES: PERRLA and EOMI. ENT: Nares clear, no rhinorrhea or epistaxis. Mucous membranes moist. NECK: Supple. CHEST: Clear to auscultation. No respiratory distress. HEART: Regular rate and rhythm. No murmur heard. Normal peripheral pulses. ABDOMEN: Soft, nontender, nondistended, normal active bowel sounds. EXTREMITIES: Normal range of motion. No edema. Small punctate wound in the right lower extremity superior to the ankle that is actively bleeding SKIN: Warm, dry, no rash. NEURO: No focal deficits. Alert and oriented x3. PSYCH: Normal mood and affect. Course Vital Signs Vital signs: Vital Signs Temperature 36.3 C L 08/01/20 01:21 Pulse Rate 88 08/01/20 01:21 Respiratory Rate 18 08/01/20 01:21 Blood Pressure 97/52 L 08/01/20 01:21 Pulse Oximetry 98 08/01/20 01:21 Temperature 36.3 C L 08/01/20 01:21 Pulse Rate 88 08/01/20 01:21 Respiratory Rate 18 08/01/20 01:21 Blood Pressure 97/52 L 08/01/20 01:21 Pulse Oximetry 98 08/01/20 01:21 Procedures Laceration Laceration 1: Date: 08/01/20 Time: 02:10 Site: lower extremity (Right lower extremity) Side (If applicable): right Size (cm): 0.5 Description: other (Punctate wound) Depth: simple, single layer Local Anesthetic: none ====== Skin Level ====== Skin layer closed with: prolene Size (cm): 4-0 Number of sutures: 1 Technique: other (Pursestring) ====== Subcutaneous Layer ====== ====== Muscle Layer ====== ====== Tendon Layer ====== Medical Decision Making Vital Signs Vital
--- NOTE | 2020-08-01 01:53 | PC.NURSE ---
bilat legs washed, remove dry bloody wrap. pulsing open vein noted. pressure applied. Dr. Couch in room.
[2020-08-01 01:59] LABS: Basophils Absolute Auto 0.1 K/mm3 (0.0-0.1); Eosinophils Absolute Auto 0.5 K/mm3 (0-0.3); Eosinophils Percent Auto 6.7 % (0-4.4); Hemoglobin 11.4 g/dL (14.0-18.0); Immature Granulocyte Absolute 0.08 K/mm3 (0.00-0.031); Lymphocytes Absolute Auto 2.56 K/mm3 (0.9-3.2); Lymphocytes Percent Auto 33.1 % (18.3-44.2); Mean Corpuscular HGB Conc 32.6 g/dl (32-36); Mean Corpuscular Hemoglobin 31.3 pg (26-34); Mean Corpuscular Volume 96.2 fl (80-100); Mean Platelet Volume 11.6 fl (7.4-10.4); Monocytes Absolute Auto 0.8 K/mm3 (0.1-0.6); Monocytes Percent Auto 10.2 % (2.6-8.5); Neutrophils Absolute Auto 3.7 K/mm3 (1.3-6.7); Platelet Count Result 156 k/mm3 (150-375); Red Blood Count 3.64 M/mm3 (4.6-6.20); Red Cell Distribution Width 13.2 % (11.5-14.5); White Blood Count 7.7 K/mm3 (4.5-10.0)
[2020-08-01 02:07] LABS: Potassium 3.4 mmol/L (3.4-5.0)
[2020-08-01 02:26] LABS: Anion Gap 5 mmol/L (8-16); Blood Urea Nitrogen 19 mg/dL (9-20); Calcium 7.5 mg/dL (8.4-10.2); Carbon Dioxide 21 mmol/L (22-30); Chloride 108 mmol/L (98-107); Estimated CRCL calculation 80 ml/min; Estimated Glomerular Filt Rate > 60; Glucose 170 mg/dL (75-110); Sodium 134 mmol/L (137-145)
[2020-08-01 03:04] VITALS: BP 108/64; PULSE 89; RESP 20; TEMP 36.3; O2SAT 96
== END 2020-08-01 03:04 | disposition home or self-care (01) ==
PROVIDERS: Emergency Provider Emergency Medicine; PCP Family Medicine
DX: I83.891 Varicose veins of right lower extremity with other complications (principal); I48.91 Unspecified atrial fibrillation; I50.9 Heart failure, unspecified; Z86.73 Personal history of transient ischemic attack (TIA), and cerebral infarction without residual deficits; E11.9 Type 2 diabetes mellitus without complications; I11.0 Hypertensive heart disease with heart failure; Z79.01 Long term (current) use of anticoagulants; Z87.891 Personal history of nicotine dependence
CPT/HCPCS: 12001; 36415; 80048; 85025; 99283

== ENCOUNTER 2020-08-24 05:37 | Inpatient (IN) | payer MEDICARE, MEDICAID, SELFPAY ==
[2020-08-24] VITALS (18 sets, daily range): BP systolic 113–160; BP diastolic 49–80; PULSE 68–139; RESP 16–25; TEMP 36.6–37.2; O2SAT 92–99; BMI 40.7
--- NOTE | ~2020-08-24 | CT_ITS ---
EXAMINATION: CT brain wo con DATE: 08/26/2020 15:07 INDICATION: Altered mental status. Confusion. TECHNIQUE: Computed tomography (CT) of the head was performed without intravenous contrast. The dose- length product was 681.00 mGy-cm. Automated exposure control and iterative reconstruction technique w ere employed. COMPARISON: CT dated 08/24/2020 FINDINGS: There is a chronic right cerebellar infarction generalized atrophy. There are scattered mod erate periventricular and subcortical white matter changes, most likely related to small vessel ische bridgette disease (microangiopathy). There is intracranial atherosclerosis. No acute intracranial hemorrhag e, infarction paranasal sinuses and mastoids are pneumatized. No depressed skull fractures., mass or mass effect. IMPRESSION: 1. No acute intracranial abnormality. 2: Chronic right cerebellar infarction with encephalomalacia. 3: Chronic age-related findings. Reviewed, dictated and finalized at location A.
--- NOTE | ~2020-08-24 | XR_ITS ---
EXAMINATION: XR chest 1V portable DATE: 08/24/2020 06:43 INDICATION: Cardiomegaly. Preop. TECHNIQUE: A single frontal view of the chest was obtained. COMPARISON: Chest 2 views 10/05/2018, CT abdomen and pelvis 09/10/2015 FINDINGS: There is no pneumonia, pleural effusion, or pneumothorax. Cardiomegaly is noted. There is a n old healed left rib fracture. IMPRESSION: 1. Cardiomegaly. Reviewed, dictated and finalized at location A. IMPRESSION: 1. Cardiomegaly.
--- NOTE | ~2020-08-24 | CT_ITS ---
EXAMINATION: CT brain wo con DATE: 08/24/2020 06:04 INDICATION: Head injury. TECHNIQUE: Computed tomography (CT) of the head was performed without intravenous contrast. The mA wa s adjusted according to patient size. Iterative reconstruction technique was employed. The dose-lengt h product was 681.00 mGy-cm. COMPARISON: Head CT 06/10/2017 FINDINGS: There are scattered areas of low attenuation in the cerebral white matter. There is an old infarct in right cerebellum. There is an old infarct in right parietal occipital region. There is no intracranial hemorrhage, acute infarction, or abnormal intracranial mass lesion. The ventricles are n ormal in size. The orbits are normal. There is mild mucosal thickening in the paranasal sinuses. The mastoid air cells are normal. IMPRESSION: 1. Old infarcts in right cerebellum and right parietal occipital region. 2. Moderate nonspecific cerebral white matter disease, which likely represents chronic small vessel i schemic disease. Reviewed, dictated and finalized at location A. IMPRESSION: 1. Old infarcts in right cerebellum and right parietal occipital region. 2. Moderate nonspecific cerebral white matter disease, which likely represents chronic small vessel ischemic disease.
--- NOTE | ~2020-08-24 | XR_ITS ---
EXAMINATION: XR hip LT 2V w AP pelvis DATE: 08/24/2020 06:22 INDICATION: Left hip pain. Fall. TECHNIQUE: An anteroposterior view of the pelvis and 3 views of left hip on a total of 5 radiographs were obtained. COMPARISON: Left hip radiographs 08/19/2007 FINDINGS: There is an intertrochanteric and subtrochanteric fracture of proximal left femur. The dist al fracture fragment demonstrates 6 mm lateral displacement and posterior angulation. There is mild o steoarthritis of the hips. There is moderate lumbar spondylosis. IMPRESSION: 1. Intertrochanteric and subtrochanteric fracture of proximal left femur. 2. Mild osteoarthritis of the hips. Reviewed, dictated and finalized at location A.
--- NOTE | ~2020-08-24 | US_ITS ---
EXAMINATION: US venous doppler [facility] DATE: 08/28/2020 14:40 INDICATION: Lower limb edema. TECHNIQUE: Grayscale ultrasound images without and with compression and Doppler ultrasound images of the bilateral lower extremity veins were obtained. COMPARISON: Ultrasound 08/25/2020 FINDINGS: Right greater saphenous vein measures 5 mm in the groin, 3 mm above the knee, and 1 mm below the knee . There is 1.5 s reflux in right greater saphenous vein above the knee. There is 1.1 s reflux in grea ter saphenous vein below the knee. Right lesser saphenous vein measures 1 mm. No reflux. Left greater saphenous vein measures 5 mm in the groin, 2 mm above the knee, and 1 mm below the knee. There is 2.5 s reflux in greater saphenous vein below the knee. Left lesser saphenous vein measures 2 mm. There is no reflux in left lesser saphenous vein. IMPRESSION: 1. Reflux in the greater saphenous veins bilaterally. Reviewed, dictated and finalized at location A.
--- NOTE | ~2020-08-24 | US_ITS ---
EXAMINATION: US venous doppler [facility] DATE: 08/25/2020 09:41 INDICATION: Lower limb edema. TECHNIQUE: Grayscale ultrasound images without and with compression and Doppler ultrasound images of the bilateral lower extremity veins were obtained. COMPARISON: Ultrasound 10/05/2019 FINDINGS: The visualized portions of right common femoral vein, profunda (deep) femoral vein, femoral vein, pop liteal vein, peroneal veins, and greater saphenous vein outflow are patent. There is thrombus in a ri ght posterior tibial vein. The visualized portions of left common femoral vein, profunda femoral vein, femoral vein, popliteal v ein, peroneal veins, posterior tibial veins, and greater saphenous vein outflow are patent. IMPRESSION: 1. Deep vein thrombosis involving a right posterior tibial vein. Reviewed, dictated and finalized at location A.
--- NOTE | 2020-08-24 06:27 | ED.GENADULT ---
HPI - General Adult General Chief complaint: Fall <Teofilo Colon MD - Last Filed: 08/24/20 06:40> Stated complaint: lf hip pain, lac left face <Teofilo Colon MD - Last Filed: 08/24/20 06:40> Time Seen by Provider: 08/24/20 11:22 <Teofilo Colon MD - Last Filed: 08/24/20 06:40> History of Present Illness HPI narrative: Patient is an 79-year-old male who presents ER with left hip deformity. He was walking in his home to turn on the fans of the air conditioner when he fell to the ground. He did not lose consciousness but did strike his head. He is no longer on Xarelto. He is unable to get up and pressed the button that alerted medics. Patient received IV pain medication by EMS. Pain is improved but has not gone away. No new numbness or tingling to lower extremity. <Teofilo Colon MD - Last Filed: 08/24/20 06:40> Related Data Allergies/adverse reactions: Allergies Allergy/AdvReac Type Severity Reaction Status Date / Time No Known Allergies Allergy Verified 08/24/20 06:56 <Teofilo Colon MD - Last Filed: 08/24/20 06:40> Review of Systems Review of Systems: All systems reviewed & are unremarkable except as noted in HPI and below <Teofilo Colon MD - Last Filed: 08/24/20 06:40> Constitutional: Constitutional: Denies chills, Denies fever(s) and Denies weakness <Teofilo Colon MD - Last Filed: 08/24/20 06:40> ENT: Denies nasal congestion and Denies sore throat <Teofilo Colon MD - Last Filed: 08/24/20 06:40> Cardiovascular: Cardiovascular: Denies chest pain and Denies radiating jaw, neck or arm pain <Teofilo Colon MD - Last Filed: 08/24/20 06:40> Musculoskeletal: Musculoskeletal: Denies back pain, Reports arthralgias and Denies joint swelling <Teofilo Colon MD - Last Filed: 08/24/20 06:40> Neurologic: Denies syncope, Denies headache(s), Denies focal weakness and Denies numbness <Teofilo Colon MD - Last Filed: 08/24/20 06:40> PMFSH Past Medical History Medical History: Medical History (Updated 08/24/20 @ 12:00 by Esau Tran MD) Afib Asbestos exposure CHF (congestive heart failure) Current use of care home anticoagulation History of CVA (cerebrovascular accident) HTN (hypertension) Type 2 diabetes mellitus without complications <Teofilo Colon MD - Last Filed: 08/24/20 06:40> Surgical History Surgical History: Surgical History History of appendectomy <Teofilo Colon MD - Last Filed: 08/24/20 06:40> Family History Family History: Family History Sibling Family history of lung cancer <Teofilo Colon MD - Last Filed: 08/24/20 06:40> Social History Social History: Social History Social History: Smoking packs per day: 0.5 Smoking cigarettes per day: 10.0 Years smoked: 3 Smoking pack-years: 1.50 Smoking status: Former smoker Tobacco type: cigarettes Second hand tobacco smoke exposure: No Smoking end date: 03/29/1960 Alcohol intake: current Drinks per week: 14 Substance use: never Substance use type: does not use Gender identity (if verbalized by the patient): Male Spiritual care concerns: No <Teofilo Colon MD - Last Filed: 08/24/20 06:40> Exam Narrative: Exam Narrative: GENERAL: Well-appearing, well-nourished, and in no acute distress. HEAD: Normocephalic, atraumatic. EYES: PERRL and EOMI. ENT: Mucous membranes moist. CHEST: Clear to auscultation. No respiratory distress. HEART: Irregular regular rate and rhythm. Normal peripheral pulses. ABDOMEN: Soft, nontender, nondistended. EXTREMITIES: Left lower extremity shortening and external rotation, range of motion limited due to pain.. 2+ edema. Chronic venous stasis changes. Normal range of motion and strength bilateral upper extrem
--- NOTE | 2020-08-24 06:33 | ECG_ITS ---
Measurements Intervals [place] Rate: 73 P: ND: 0 QRS: -28 QRSD: 108 T: 63 QT: 386 QTc: 427 Interpretive Statements ATRIAL FIBRILLATION BORDERLINE R WAVE PROGRESSION, ANTERIOR LEADS MINIMAL Q WAVES- HIGH LATERAL LEADS BORDERLINE ST-T WAVE ABNORMALITY- HIGH LATERAL LEADS ABNORMAL ECG Electronically Signed On 08-24-2020 7:43:08 CDT by Brandon Soto D.O.
[2020-08-24] MEDS: LIDO 1%/EPINEPHRINE 1:100,000 50 ML VIAL INFILTRATE (06:51)
[2020-08-24 06:53] LABS: Basophils Absolute Auto 0.1 K/mm3 (0.0-0.1); Basophils Percent Auto 0.6 % (0.2-1.2); Eosinophils Absolute Auto 0.3 K/mm3 (0-0.3); Hemoglobin 11.5 g/dL (14.0-18.0); Immature Granulocyte Absolute 0.13 K/mm3 (0.00-0.031); Immature Granulocyte Percent A 1.2 % (0-0.5); Lymphocytes Absolute Auto 2.04 K/mm3 (0.9-3.2); Lymphocytes Percent Auto 18.7 % (18.3-44.2); Mean Corpuscular HGB Conc 31.9 g/dl (32-36); Mean Corpuscular Hemoglobin 29.5 pg (26-34); Mean Corpuscular Volume 92.3 fl (80-100); Mean Platelet Volume 12.2 fl (7.4-10.4); Monocytes Percent Auto 9.4 % (2.6-8.5); Neutrophils Absolute Auto 7.3 K/mm3 (1.3-6.7); Neutrophils Percent Auto 67.1 % (45.5-73.1); Platelet Count Result 71 k/mm3 (150-375); Red Cell Distribution Width 13.6 % (11.5-14.5); White Blood Count 10.9 K/mm3 (4.5-10.0)
[2020-08-24] MEDS: MORPHINE SULFATE (*CRX) 4 MG/ML INJ IV PUSH ×2 (06:55→11:33)
[2020-08-24 07:38] LABS: Anion Gap 9 mmol/L (8-16); Blood Urea Nitrogen 19 mg/dL (9-20); Calcium 9.7 mg/dL (8.4-10.2); Carbon Dioxide 27 mmol/L (22-30); Chloride 102 mmol/L (98-107); Estimated CRCL calculation 72 ml/min; Estimated Glomerular Filt Rate > 60; Glucose 172 mg/dL (75-110); Potassium 4.4 mmol/L (3.4-5.0); Sodium 138 mmol/L (137-145)
[2020-08-24 08:10] LABS: Prothrombin Time 13.3 Seconds (11.1-14.7)
[2020-08-24 08:15] LABS: Partial Thromboplastin Time 24.1 SECONDS (22.3-36.8)
--- NOTE | 2020-08-24 08:34 | PM.CNOR ---
Assessment and Plan Assessment and plan (1) Pertrochanteric fracture of left femur: Qualifiers: Encounter type: initial encounter Fracture type: closed Qualified Code(s): S72.102A - Unspecified trochanteric fracture of left femur, initial encounter for closed fracture Code(s): S72.102A - Unspecified trochanteric fracture of left femur, initial encounter for closed fracture Status: Acute Assessment and Plan: 79-year-old male with pretty significant medical comorbidities. He has got an acute left hip peritrochanteric fracture which will need to be stabilized surgically however he has got to be optimized medically. According to his son-in-law, he is a bit of a drinker although the extent is unknown. With his elevated pro time, he may have some liver disease, particularly given that he has been off of blood thinners and only on baby aspirin now for the past two weeks. Risks and potential complications were discussed in detail and questions answered. If he can be medically optimized in the next day or so, possibly be able to fix this surgically with intramedullary implant on Wednesday. Thank you for the consultation. History of Present Illness HPI Consult date: 08/24/20 Consult reason: fracture Chief complaint: lf hip pain, lac left face Narrative: 79-year-old male who fell his residence today suffering a left peritrochanteric fracture. He also suffered a laceration over the left orbit and one at the left elbow. These were cleaned up and stitched up in the emergency room. History of being on Xarelto however this was stopped about two weeks ago because of recurrent bleeding episodes from varicose veins. He is a and makes decisions in concert with his daughter according to his son-in-law who is here today with him. His daughter is on her way back from [place]. Review of Systems Constitutional: Constitutional: Denies chills and Denies fever(s) Eyes: Eyes: Reports no additional eye complaints ENT: Reports system reviewed and no additional complaints, except as documented Cardiovascular: Cardiovascular: Denies chest pain and Denies dyspnea on exertion Respiratory: Respiratory: Reports no additional respiratory complaints and Denies dyspnea on exertion Gastrointestinal: Gastrointestinal: Denies abdominal pain and Denies bloating Hematologic/Lymphatic: Hematologic/Lymphatic: Reports easy bleeding (History of being on Xarelto -recently stopped) [facility] Past Medical History Medical History (Updated 08/24/20 @ 08:40 by Johnathan Farias MD) Afib Asbestos exposure CHF (congestive heart failure) 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 History of CVA (cerebrovascular accident) HTN (hypertension) Type 2 diabetes mellitus without complications Surgical History Surgical History History of appendectomy Family History Family History Sibling Family history of lung cancer Social History Social History Social History: Smoking packs per day: 0.5 Smoking cigarettes per day: 10.0 Years smoked: 3 Smoking pack-years: 1.50 Smoking status: Former smoker Tobacco type: cigarettes Second hand tobacco smoke exposure: No Smoking end date: 03/29/1959 Alcohol intake: current Drinks per week: 14 Substance use: never Substance use type: does not use Gender identity (if verbalized by the patient): Male Spiritual care concerns: No Meds Home Medications and Allergies Home Medications Medication Instructions Recorded Confirmed Type quetiapine 25 mg tablet 12.5 mg PO DAILY PRN #60 tablet 06/17/20 08/14/20 Rx potassium chloride 20 mEq 20 meq PO DAILY #90 tablet 06/27/20 08/14/20 Rx tablet,extended release Allergies Allergy/AdvReac Type Severity Reaction Status Date / Time No Known Allergies Allergy Albina
[2020-08-24] MEDS: ONDANSETRON INJ 4 MG/2 ML VIAL IV PUSH (11:33)
[2020-08-24] MEDS: LORazepam INJ (*CRX) 2 MG/ML VIAL 1 MG IV PUSH (12:10)
--- NOTE | 2020-08-24 13:45 | PM.IMHP ---
H&P: HPI History of Present Illness Date/Time: 08/24/20 13:45 Chief Complaint: Left hip pain after fall. Narrative: This is an 79-year-old male with history of stroke, congestive heart failure, diabetes, hypertension, and paroxysmal atrial fibrillation who presented to the emergency department earlier today via EMS for evaluation of left hip pain after a fall. Earlier today he went to turn on a alok and after doing so turned around to go to his chair when he fell down onto his left side striking the left side of his face, elbow, and hip on the ground. He is uncertain whether or not he tripped, lost his balance, or if perhaps he may have lost consciousness briefly. He was able to press Life Alert and on EMS arrival he was complaining of left hip pain with inability to bear weight. Radiographs demonstrate a left hip fracture and he is being admitted in this setting. He has a walker at home but was not using it at the time. As mentioned he is not certain how he fell ?the next thing I knew I was on the ground.? He does not think his glucose was low however admits he does not check it often. Currently he denies vertigo, syncope, near syncope, cold and flu symptoms, chest pain, pleuritic pain, shortness of breath, nausea, vomiting, sweats, diarrhea, and dysuria. No paresthesias, skin color, or temperature changes distal to the fracture. Review of Systems Review of Systems: Narrative: Twelve systems were reviewed with pertinent positives and negatives as per HPI. He denies fever, chills, and sweats. No cold or flu symptoms. He denies sick contacts. Recently had issues with bleeding varicose veins of the right lower extremity, not currently bleeding. He drinks 2 alcoholic beverages a day, reports never having signs or symptoms of alcohol withdrawal. Except as documented, all other systems were reviewed and are negative. [facility] Past Medical History Medical History (Updated 08/24/20 @ 18:48 by Mary Grace Resendiz PA-C) Arthritis Asbestos exposure Atrial fibrillation Not currently on anticoagulation due to bleeding varicosities of the right lower extremity as of 08/15/2020. Congestive heart failure (2014) Echocardiogram in September 2019 showed normal left ventricular chamber size and function with an estimated EF of 60 to 65%. Daily consumption of alcohol History of cerebrovascular accident Hypertension Type 2 diabetes mellitus Hemoglobin A1c was 7.1% on 06/14/2020. Varicose veins of both lower extremities Surgical History Surgical History (Updated 08/24/20 @ 12:59 by Mary Grace Resendiz PA-C) History of appendectomy History of vasectomy Family History Family History Sibling Family history of lung cancer Social History Social History (Updated 08/24/20 @ 18:27 by Mary Grace Resendiz PA-C) Social History: Power of litigation attorney associate: Martha Rasmussen. Code status: Full code. Smoking packs per day: 0.5 Smoking cigarettes per day: 10.0 Years smoked: 3 Smoking pack-years: 1.50 Smoking status: Former smoker Tobacco type: cigarettes Second hand tobacco smoke exposure: No Alcohol intake: current Drinks per week: 14 Alcohol use details: 1 glass wine a day/1 whiskey highball a day Substance use: never Substance use type: does not use Additional living arrangements comments: The patient lives in his own apartment in [place]. He is . Additional occupation/education comments: Retired. Gender identity (if verbalized by the patient): Male Spiritual care concerns: No Meds Home Medications and Allergies Home Medications Medication Instructions Recorded Confirmed Type potassium chloride 20 mEq 20 meq PO DAILY #90 tablet 06/27/20 08/24/20 Rx tablet,extended release aspirin [Baby Aspirin] 81 mg PO DAILY 08/24/20 08/24/20 History furosemide 40 mg PO DAILY 08/24/20 08/24/20 History Allergies Allergy/AdvReac Type Severity Reacti
[2020-08-24] MEDS: THIAMINE HCL INJ 100 MG, FOLIC ACID INJ 1 MG, MULTIVITAMINS-12 INJ VIAL 1 5 ML, MULTIVI... IV CONT (13:51)
--- NOTE | 2020-08-24 14:22 | ADMGEN ---
This patient, Alberto Rasmussen, was admitted to 2 Medical Room 259-. Patient/family oriented to hospital policies and general routines including ID bracelet, bed and alarms, visiting hours, pain management, procedures, bathroom and other care routines, personal items, smoking policy, room service/diet, and visiting hours. Information on how to activate the Rapid Response Team has been discussed. Patient/Family are encouraged to report perceived risks to care and to ask questions if they do not understand what they are told or what they should do.
[2020-08-24 19:54] LABS: Hematocrit 35.5 % (42.0-52.0); Hemoglobin 11.3 g/dL (14.0-18.0); Immature Reticulocyte Fraction 22.6 % (3.0-15.9); Mean Corpuscular HGB Conc 31.8 g/dl (32-36); Mean Corpuscular Hemoglobin 29.2 pg (26-34); Mean Corpuscular Volume 91.7 fl (80-100); Mean Platelet Volume 11.8 fl (7.4-10.4); Platelet Count Result 188 k/mm3 (150-375); Red Blood Count 3.87 M/mm3 (4.6-6.20); Red Cell Distribution Width 13.6 % (11.5-14.5); Reticulocyte Percent 1.69 % (0.7-4.3); Reticulocytes Absolute 0.07 B/L (32.2-175.7); White Blood Count 11.4 K/mm3 (4.5-10.0)
[2020-08-24 20:02] LABS: Hemoglobin A1C 6.5 % (<5.7)
[2020-08-24 20:04] LABS: Alanine Aminotransferase 28 U/L (4-50); Albumin Level 3.9 g/dL (3.5-5.1); Alkaline Phosphatase 75 U/L (38-126); Aspartate Amino Transferase 63 U/L (17-59); Bilirubin,Total 0.9 mg/dL (0.2-1.3); Magnesium 2.1 mg/dL (1.6-2.3)
[2020-08-24 20:37] LABS: Iron 31 ug/dL (49-181)
[2020-08-24 20:47] LABS: Percent Iron Saturation 8 % (20-50)
[2020-08-24] MEDS: SODIUM CHLORIDE 0.9% IV 1,000 ML 125 ML IV CONT (21:03)
[2020-08-24] MEDS: HYDROmorphone HCL INJ (*CRX) 1 MG/ML SYR 0.5 MG IV PUSH (21:08)
[2020-08-24] MEDS: THIAMINE HCL 200 MG/2 ML VIAL 100 MG IV PUSH (21:48)
[2020-08-24] MEDS: CEPHALEXIN 500 MG CAPSULE PO (21:49)
[2020-08-25] VITALS (12 sets, daily range): BP systolic 101–142; BP diastolic 54–78; PULSE 58–98; RESP 16–22; TEMP 36.4–36.8; O2SAT 93–100
[2020-08-25] MEDS: HYDROmorphone HCL INJ (*CRX) 1 MG/ML SYR 0.5 MG IV PUSH ×5 (01:39→23:06)
--- NOTE | 2020-08-25 04:25 | PCRCNOTE ---
Patient experiencing ETOH withdrawal. Pt is agitated and constantly pulling off tele cables. Apnea link was not performed ru (08/24/20)
[2020-08-25 05:03] LABS: Hemoglobin 10.7 g/dL (14.0-18.0); Mean Corpuscular HGB Conc 31.5 g/dl (32-36); Mean Corpuscular Hemoglobin 28.7 pg (26-34); Mean Corpuscular Volume 91.2 fl (80-100); Mean Platelet Volume 12.5 fl (7.4-10.4); Platelet Count Result 155 k/mm3 (150-375); Red Blood Count 3.73 M/mm3 (4.6-6.20); Red Cell Distribution Width 13.5 % (11.5-14.5)
[2020-08-25 05:11] LABS: INR 1.1; Prothrombin Time 14.5 Seconds (11.1-14.7)
[2020-08-25 05:13] LABS: Partial Thromboplastin Time 28.2 SECONDS (22.3-36.8)
[2020-08-25 05:16] LABS: Alanine Aminotransferase 28 U/L (4-50); Albumin Level 3.7 g/dL (3.5-5.1); Alkaline Phosphatase 70 U/L (38-126); Anion Gap 4 mmol/L (8-16); Aspartate Amino Transferase 78 U/L (17-59); Blood Urea Nitrogen 16 mg/dL (9-20); Calcium 9.1 mg/dL (8.4-10.2); Carbon Dioxide 33 mmol/L (22-30); Chloride 103 mmol/L (98-107); Estimated CRCL calculation 72 ml/min; Estimated Glomerular Filt Rate > 60; Glucose 209 mg/dL (75-110); Magnesium 2.2 mg/dL (1.6-2.3); Potassium 4.5 mmol/L (3.4-5.0); Sodium 140 mmol/L (137-145)
--- NOTE | 2020-08-25 07:27 | PM.PNORT ---
Progress Note: A&P Assessment and Plan (1) Pertrochanteric fracture of left femur: Qualifiers: Encounter type: initial encounter Fracture type: closed Qualified Code(s): S72.102A - Unspecified trochanteric fracture of left femur, initial encounter for closed fracture Code(s): S72.102A - Unspecified trochanteric fracture of left femur, initial encounter for closed fracture Status: Acute Assessment and Plan: 79-year-old male with a left peritrochanteric hip fracture. Pending final medical clearance, anticipate heading to the operating room tomorrow for surgical stabilization. Discussed with patient again today. Following. Subjective Subjective Date/Time Seen: 08/25/20 07:27 Principal diagnosis: Left peritrochanteric hip fracture Interval history: 79-year-old male with a left hip fracture. Resting comfortably this morning. SVT run last night noted. Awaiting cardiology consultation today. Exam Const: General: cooperative, comfortable and no acute distress Nutritional Appearance: obese HENMT: Head: other (Laceration over left orbit well opposed and no drainage.) Extrem: Other: Skin over left hip and thigh in good shape. Laceration over the left posterior elbow well opposed and no drainage. Objective Data Vital Signs Vital Signs: Vital Signs - 24 hr 08/24/20 08:00 08/24/20 09:00 08/24/20 10:05 Temperature Pulse Rate 72 73 71 Respiratory Rate 16 20 20 Blood Pressure 124/66 144/71 H 124/60 Pulse Oximetry 97 99 98 08/24/20 12:15 08/24/20 12:31 08/24/20 12:46 Temperature Pulse Rate 75 88 79 Respiratory Rate 20 22 H 20 Blood Pressure 129/64 130/54 L 113/58 L Pulse Oximetry 96 08/24/20 13:01 08/24/20 13:16 08/24/20 14:00 Temperature Pulse Rate 79 75 68 Respiratory Rate 25 H 20 20 Blood Pressure 118/64 132/80 136/69 Pulse Oximetry 96 08/24/20 14:30 08/24/20 16:24 08/24/20 18:00 Temperature 98.1 F 98.1 F Pulse Rate 80 80 82 Respiratory Rate 18 18 Blood Pressure 140/62 140/62 Pulse Oximetry 92 92 08/24/20 20:00 08/24/20 20:40 08/24/20 20:50 Temperature Pulse Rate 76 139 H 94 Respiratory Rate Blood Pressure Pulse Oximetry 08/24/20 21:39 08/25/20 00:00 08/25/20 01:38 Temperature 98.9 F 98.2 F Pulse Rate 82 98 86 Respiratory Rate 20 22 H Blood Pressure 124/49 L 140/62 Pulse Oximetry 94 94 08/25/20 04:00 08/25/20 06:00 Temperature 98.1 F Pulse Rate 89 93 Respiratory Rate 20 Blood Pressure 138/65 Pulse Oximetry 96 Intake/Output Intake/Output: Intake & Output 08/22/20 08/23/20 08/24/20 08/25/20 23:59 23:59 23:59 23:59 Intake Total 250 / 250 Output Total 350 / 350 750 / 750 Balance -350 / -350 -500 / -500 Meds/Results Medications: Active Medications Generic Name Dose Route Start Last Admin Trade Name Freq PRN Reason Stop Dose Admin Cephalexin HCl 500 mg 08/24/20 21:00 08/24/20 21:49 Cephalexin 500 Mg Capsule PO 500 mg Q12HR HOA Administration Chlordiazepoxide HCl 25 mg 08/24/20 18:54 Chlordiazepoxide (*Crx) 25 Mg Capsule PO Q6H PRN Withdrawal Folic Acid 1 mg 08/25/20 09:00 Folic Acid 1 Mg Tablet PO DAILY [facility] Furosemide 40 mg 08/25/20 09:00 Furosemide 40 Mg Tablet PO DAILY [facility] Hydromorphone HCl 0.5 mg 08/24/20 11:46 08/25/20 01:39 Hydromorphone Hcl Inj (*Crx) 1 Mg/Ml Syr IV PUSH 0.5 mg Q4H PRN Administration Pain Rated 7-10 Acetaminophen 1,000 mg in 100 mls @ 400 mls/hr 08/24/20 11:46 08/25/20 06:08 Ofirmev 1,000 Mg Ivpb IVPB 08/25/20 11:47 Infused Q6H PRN Infusion Mild Pain (1-3) or Fever Lorazepam 1 mg 08/24/20 18:56 Lorazepam Inj (*Crx) 2 Mg/Ml Vial IV PUSH Q6H PRN Withdrawal AND CIWA > 8 Ondansetron HCl 4 mg 08/24/20 11:46 Ondansetron Inj 4 Mg/2 Ml Vial IV PUSH Q4H PRN Nausea Potassium Chloride 20 meq 08/25/20 09:00 Potassium Chloride 20 Meq Tablet.Er PO
[2020-08-25] MEDS: THIAMINE HCL 100 MG TABLET PO (08:09)
[2020-08-25] MEDS: CEPHALEXIN 500 MG CAPSULE PO ×2 (08:09→21:00)
[2020-08-25] MEDS: FOLIC ACID 1 MG TABLET PO (08:10)
[2020-08-25] MEDS: FUROSEMIDE 40 MG TABLET PO (08:10)
[2020-08-25] MEDS: POTASSIUM CHLORIDE 20 MEQ TABLET.ER PO (08:10)
--- NOTE | 2020-08-25 08:44 | PM.CNCAR ---
Assessment and Plan Assessment and plan (1) Fall from ground level: Code(s): W18.30XA - Fall on same level, unspecified, initial encounter Status: Acute Assessment and Plan: 79-year-old male with CHF with preserved ejection fraction, atrial fibrillation not on anticoagulation (Anticoagulation reportedly discontinued due to recurrent bleeding from lower extremity varicosities); hypertension, type 2 diabetes mellitus, ?varicose veins; history of CVA. Patient presented with fall, and found to have Intertrochanteric and subtrochanteric fracture of proximal left femur. Patient is in persistent atrial fibrillation with controlled ventricular response. His anticoagulation was recently discontinued due to bleeding in the lower extremities. No active bleeding in the lower extremities at present. -patient has been seen by Orthopedic surgery, and conservative management is being pursued after conversation with patient's daughter, who according to patient is durable power of trust and estates attorney. (2) Afib: Qualifiers: Atrial fibrillation type: unspecified Qualified Code(s): I48.91 - Unspecified atrial fibrillation Code(s): I48.91 - Unspecified atrial fibrillation Status: Chronic Assessment and Plan: Patient has persistent atrial fibrillation with heart rates mostly controlled. Start low-dose metoprolol tartrate 12.5 mg p.o. b.i.d.. Continue to monitor on telemetry. As regards patient's anticoagulation, his rivaroxaban was recently discontinued due to bleeding in the lower extremities. Patient remains at significant CVA risk from atrial fibrillation. In addition, he was found to have DVT in the right lower extremity during this hospitalization, which also puts him at risk for pulmonary embolism. After discussion with the primary team, it would be reasonable to restart rivaroxaban for anticoagulation-both for atrial fibrillation and DVT. In the meantime, recommend lower extremity comprehensive venous duplex to assess for venous insufficiency. If patient has significant venous reflux, then endovascular ablation treatment would be appropriate. Patient's additional workup and treatment will depend on patient's and his family's wishes. Patient indicated that his daughter is the durable power of trust and estates attorney. (3) History of CVA (cerebrovascular accident): Code(s): Z86.73 - Personal history of transient ischemic attack (TIA), and cerebral infarction without residual deficits Status: Acute Assessment and Plan: See above (4) DVT (deep venous thrombosis): Code(s): I82.409 - Acute embolism and thrombosis of unspecified deep veins of unspecified lower extremity Status: Acute Assessment and Plan: See above History of Present Illness History of Present Illness Consult date/time: 08/25/20 08:44 Date of consult: 08/25/2020 Reason for consult: AFib, and SVT asymptomatic, left hip fracture Requesting physician: RANCHO Resendiz Chief complaint: Fall HPI:79-year-old male with CHF with preserved ejection fraction, atrial fibrillation not on anticoagulation (Anticoagulation reportedly discontinued due to recurrent bleeding from lower extremity varicosities); hypertension, type 2 diabetes mellitus, ?varicose veins; history of CVA. Patient presented to [facility] on 08/24/2020 after he had a fall, and had left hip deformity. Patient states that he was trying to switch the fan on on the AC, and had a fall. He denied any preceding symptoms of chest pain, palpitation, dizziness, syncope. Patient follows up with Dr. Turcios for his cardiovascular care. Apparently, his anticoagulation was recently discontinued because of significant bleeding in lower extremities. The X-ray of the hip showed Intertrochanteric and subtrochanteric fracture of proximal left femur. Patient has been evaluated by Orthopedic surgery. Based on the information provided by the primary team, apparently, conservative m
--- NOTE | 2020-08-25 10:00 | PC.NURSE ---
Patient's daughter at bedside and voicing concerns regarding patient's scheduled surgery for tomorrow. Daughter has multiple concerns regarding patient's history of noncompliance and his current home situation. Requesting to speak with Dr. Farias further prior to giving consent for surgery. Daughter also concerned about heart history and would like to speak with cardiology. Dr. Porter here for and spoke with daughter at length at bedside. Called Dr. Farias and Dr. Farias spoke with daughter via phone at length. Received call from Dr. Farias after this stating surgery is cancelled. Dr. Porter and Doris DUENAS notified of cancellation.
--- NOTE | 2020-08-25 11:39 | PM.IMPN ---
Progress Note: A&P Assessment and Plan (1) Pertrochanteric fracture of left femur: Qualifiers: Encounter type: initial encounter Fracture type: closed Qualified Code(s): S72.102A - Unspecified trochanteric fracture of left femur, initial encounter for closed fracture Code(s): S72.102A - Unspecified trochanteric fracture of left femur, initial encounter for closed fracture Status: Acute Assessment and Plan: Patient sustained a ground level fall at home. XR demonstrated intertrochanteric and subtrochanteric fracture of proximal left femur. Appreciate orthopedic recommendations - surgical and nonsurgical options have been discussed at length with patient and family. Seems patient's daughter is concerned with his motivation for therapy postoperatively given his history of medical noncompliance, thus family and Dr. Farias have agreed on conservative management without surgery at this time. (2) Fall from ground level: Code(s): W18.30XA - Fall on same level, unspecified, initial encounter Status: Acute Assessment and Plan: No known loss of consciousness. Lacerations to left elbow and left eyebrow were sutured in the ED. (3) Atrial fibrillation: Qualifiers: Atrial fibrillation type: unspecified Qualified Code(s): I48.91 - Unspecified atrial fibrillation Code(s): I48.91 - Unspecified atrial fibrillation Status: Chronic Assessment and Plan: Longstanding history of chronic atrial fibrillation followed by Dr. Turcios. He was previously anticoagulated with Xarelto which was discontinued 08/15/2020 due to significant bleeding of bilateral lower extremity varicosities. Rate controlled. Appreciate Cardiology recommendations - discussed with Dr. Porter, noted his plan to start metoprolol. (4) Hypertension: Qualifiers: Hypertension type: essential hypertension Qualified Code(s): I10 - Essential (primary) hypertension Code(s): I10 - Essential (primary) hypertension Status: Chronic Assessment and Plan: Blood pressures reviewed, last 118/54. Will monitor with newly started metoprolol. Monitor BP and adjust treatment as needed. (5) Type 2 diabetes mellitus: Qualifiers: Diabetes mellitus complication status: without complication Diabetes mellitus terminal supervisor insulin use: without retirement use Qualified Code(s): E11.9 - Type 2 diabetes mellitus without complications Code(s): E11.9 - Type 2 diabetes mellitus without complications Status: Chronic Assessment and Plan: Hgb A1c 6.5% demonstrating good control. Patient does not appear to be on any medications for diabetes. Continue to monitor with accu-cheks and adjust treatment as needed, cover with SSI. (6) Congestive heart failure: Onset Date: 2014 Qualifiers: Heart failure chronicity: unspecified Heart failure type: unspecified Qualified Code(s): I50.9 - Heart failure, unspecified Code(s): I50.9 - Heart failure, unspecified Status: Chronic Assessment and Plan: With preserved EF 60-65% demonstrated on echocardiogram September 2019. Appears euvolemic. No chest pain or SOB. Continue oral Lasix, new beta-blockade started by Cardiology. Monitor fluid status, I&Os. (7) DVT (deep venous thrombosis): Code(s): I82.409 - Acute embolism and thrombosis of unspecified deep veins of unspecified lower extremity Status: Acute Assessment and Plan: Venous Dopplers of JENNI lower extremities obtained this morning demonstrated deep venous thrombosis in the right posterior tibial vein. Although his anticoagulation was recently discontinued due to bleeding varicose veins of
--- NOTE | 2020-08-25 12:18 | PC.NURSE ---
Per radiology, further venous testing cannot be completed on the weekend and will need to be done on Wednesday if patient is still here. Notified Doris DUENAS of same.
[2020-08-25 16:55] LABS: Glucose Point of Care 201 mg/dl (65-105)
[2020-08-25] MEDS: INSULIN ASPART (*BKC) 100 UNITS/ML SUB-Q (17:12)
[2020-08-25] MEDS: RIVAROXABAN 20 MG TABLET PO (17:13)
[2020-08-25 20:00] LABS: Glucose Point of Care 221 mg/dl (65-105)
[2020-08-25] MEDS: METOPROLOL TARTRATE 12.5 MG TABLET PO (21:00)
[2020-08-26] VITALS (11 sets, daily range): BP systolic 128–143; BP diastolic 63–69; PULSE 67–103; RESP 16–20; TEMP 36.4–36.8; O2SAT 92–97; BMI 11.0
[2020-08-26] MEDS: chlordiazePOXIDE (*CRX) 25 MG CAPSULE PO (01:38)
[2020-08-26 05:18] LABS: Hematocrit 33.2 % (42.0-52.0); Hemoglobin 10.4 g/dL (14.0-18.0)
[2020-08-26] MEDS: HYDROmorphone HCL INJ (*CRX) 1 MG/ML SYR 0.5 MG IV PUSH ×3 (05:30→15:48)
[2020-08-26 05:33] LABS: Anion Gap 7 mmol/L (8-16); Blood Urea Nitrogen 18 mg/dL (9-20); Calcium 8.9 mg/dL (8.4-10.2); Carbon Dioxide 28 mmol/L (22-30); Chloride 102 mmol/L (98-107); Estimated CRCL calculation 80 ml/min; Estimated Glomerular Filt Rate > 60; Glucose 183 mg/dL (75-110); Potassium 4.2 mmol/L (3.4-5.0); Sodium 137 mmol/L (137-145)
--- NOTE | 2020-08-26 08:54 | PM.PNORT ---
Progress Note: A&P Assessment and Plan (1) Pertrochanteric fracture of left femur: Qualifiers: Encounter type: initial encounter Fracture type: closed Qualified Code(s): S72.102A - Unspecified trochanteric fracture of left femur, initial encounter for closed fracture Code(s): S72.102A - Unspecified trochanteric fracture of left femur, initial encounter for closed fracture Status: Acute Assessment and Plan: 7-year-old male with a left pertrochanteric hip fracture. I had a lengthy discussion with his daughter who is his medical decision maker yesterday. He has got almost overwhelming medical comorbidities and by her report little motivation to do any type of therapy. The decision has been made for nonsurgical treatment fully understanding the implications of this. Plan will be to try and get him mobilized into a chair to at least get him up off of his back. I will follow him while in the hospital. Subjective Subjective Date/Time Seen: 08/26/20 08:54 Principal diagnosis: Left peritrochanteric hip fracture Interval history: 79-year-old male with left peritrochanteric hip fracture. No new complaints overnight. Pain reasonably well controlled at this point. Exam Const: General: cooperative, comfortable and no acute distress Nutritional Appearance: obese morbidly obese Extrem: Other: Left leg slightly shortened and externally rotated. Neurovascular status unchanged. Objective Data Vital Signs Vital Signs: Vital Signs - 24 hr 08/25/20 09:55 08/25/20 12:00 08/25/20 16:00 Temperature 97.7 F Pulse Rate 85 93 Respiratory Rate 16 Blood Pressure 142/65 H Pulse Oximetry 93 93 08/25/20 20:00 08/25/20 21:00 08/25/20 21:02 Temperature 97.6 F Pulse Rate 93 94 58 L Respiratory Rate 16 20 Blood Pressure 142/65 H 101/78 Pulse Oximetry 93 100 08/25/20 21:35 08/26/20 00:00 08/26/20 04:00 Temperature Pulse Rate 85 90 Respiratory Rate Blood Pressure Pulse Oximetry 95 08/26/20 06:10 Temperature 97.5 F L Pulse Rate 103 H Respiratory Rate 20 Blood Pressure 128/63 Pulse Oximetry 92 Intake/Output Intake/Output: Intake & Output 08/23/20 08/24/20 08/25/20 08/26/20 23:59 23:59 23:59 23:59 Intake Total 806 / 806 100 / 100 Output Total 350 / 350 1475 / 1475 500 / 500 Balance -350 / -350 -669 / -669 -400 / -400 Meds/Results Medications: Active Medications Generic Name Dose Route Start Last Admin Trade Name Freq PRN Reason Stop Dose Admin Cephalexin HCl 500 mg 08/24/20 21:00 08/25/20 21:00 Cephalexin 500 Mg Capsule PO 500 mg Q12HR HOA Administration Chlordiazepoxide HCl 25 mg 08/24/20 18:54 08/26/20 01:38 Chlordiazepoxide (*Crx) 25 Mg Capsule PO 25 mg Q6H PRN Administration Withdrawal Dextrose 12.5 gm 08/25/20 14:37 Dextrose 50% 25 Gm/50 Ml Syringe IV PUSH PRN PRN Hypoglycemia Protocol Folic Acid 1 mg 08/25/20 09:00 08/25/20 08:10 Folic Acid 1 Mg Tablet PO 1 mg DAILY HOA Administration Furosemide 40 mg 08/25/20 09:00 08/25/20 08:10 Furosemide 40 Mg Tablet PO 40 mg DAILY HOA Administration Glucagon 1 mg 08/25/20 14:37 Glucagon For Inj 1 Mg Vial IM PRN PRN Hypoglycemia Protocol Glucose 15 gm 08/25/20 14:37 Glucose Oral Gel 15 Gm Of Glucse In 37.5 Gm Tube PO PRN PRN Hypoglycemia Protocol Hydromorphone HCl 0.5 mg 08/24/20 11:46 08/26/20 05:30 Hydromorphone Hcl Inj (*Crx) 1 Mg/Ml Syr IV PUSH 0.5 mg Q4H PRN Administration Pain Rated 7-10 Dextrose 1,000 mls @ 100 mls/hr 08/25/20 14:37 Dextrose 5% 1,000 Ml IVPB PRN PRN Hypoglycemia Protocol Insulin Aspart 2 - 5 units 08/25/20 17:00 08/25/20 17:12 Insulin Aspart (*Bkc) 100 Units/Ml SUB-Q 2 units TIDWM HOA Administration Protocol Lorazepam 1 mg 08/24/20 18:56 Lorazepam Inj (*Crx) 2 Mg/Ml Vial IV PUSH Q6H PRN Withdrawal
[2020-08-26 09:04] LABS: Glucose Point of Care 184 mg/dl (65-105)
--- NOTE | 2020-08-26 09:50 | PM.IMPN ---
Progress Note: A&P Assessment and Plan (1) Pertrochanteric fracture of left femur: Qualifiers: Encounter type: initial encounter Fracture type: closed Qualified Code(s): S72.102A - Unspecified trochanteric fracture of left femur, initial encounter for closed fracture Code(s): S72.102A - Unspecified trochanteric fracture of left femur, initial encounter for closed fracture Status: Acute Assessment and Plan: Patient sustained a ground level fall at home. XR demonstrated intertrochanteric and subtrochanteric fracture of proximal left femur. Appreciate orthopedic recommendations - surgical and nonsurgical options have been discussed at length with patient and family. Seems patient's daughter is concerned with his motivation for therapy postoperatively given his history of medical noncompliance, thus family and Dr. Farias have agreed on conservative management without surgery at this time. Pt will need placement. (2) Fall from ground level: Code(s): W18.30XA - Fall on same level, unspecified, initial encounter Status: Acute Assessment and Plan: No known loss of consciousness. Lacerations to left elbow and left eyebrow were sutured in the ED. (3) DVT (deep venous thrombosis): Qualifiers: DVT location: lower extremity Affected thrombotic vein of extremity: tibial Chronicity: acute Laterality: right Qualified Code(s): I82.441 - Acute embolism and thrombosis of right tibial vein Code(s): I82.409 - Acute embolism and thrombosis of unspecified deep veins of unspecified lower extremity Status: Acute Assessment and Plan: Venous Dopplers of JENNI lower extremities obtained 08/25 demonstrated deep venous thrombosis in the right posterior tibial vein. Although his Xarelto (for a fib) was recently discontinued due to bleeding varicose veins of the legs, given his significant risk for CVA with chronic atrial fibrillation and a new DVT with risk for PE given his new fracture and immobility it is the general medical consensus to resume his Xarelto 08/25. Discussed with Dr. Porter and my collaborating physician. Monitor closely for bleeding. (4) Atrial fibrillation: Qualifiers: Atrial fibrillation type: unspecified Qualified Code(s): I48.91 - Unspecified atrial fibrillation Code(s): I48.91 - Unspecified atrial fibrillation Status: Chronic Assessment and Plan: Longstanding history of chronic atrial fibrillation followed by Dr. Turcios. He was previously anticoagulated with Xarelto which was discontinued 08/15/2020 due to significant bleeding of bilateral lower extremity varicosities, restarted 08/25, see above. Rate controlled. Appreciate Cardiology recommendations - discussed with Dr. Porter, noted his plan to start metoprolol. (5) Hypertension: Qualifiers: Hypertension type: essential hypertension Qualified Code(s): I10 - Essential (primary) hypertension Code(s): I10 - Essential (primary) hypertension Status: Chronic Assessment and Plan: Blood pressures reviewed, last 128/63. Will monitor with newly started metoprolol. Monitor BP and adjust treatment as needed. (6) Type 2 diabetes mellitus: Qualifiers: Diabetes mellitus rat exterminator insulin use: without fpc use Diabetes mellitus complication status: without complication Qualified Code(s): E11.9 - Type 2 diabetes mellitus without complications Code(s): E11.9 - Type 2 diabetes mellitus without complications Status: Chronic Assessment and Plan: Hgb A1c 6.5% demonstrating good control. Patient does not appear to be on any medications for diabetes. Continue to monitor with accu-cheks and adjust treatment as needed, c
[2020-08-26] MEDS: THIAMINE HCL 100 MG TABLET PO (09:56)
[2020-08-26] MEDS: CEPHALEXIN 500 MG CAPSULE PO ×2 (09:56→21:18)
[2020-08-26] MEDS: FOLIC ACID 1 MG TABLET PO (09:56)
[2020-08-26] MEDS: POTASSIUM CHLORIDE 20 MEQ TABLET.ER PO (09:56)
[2020-08-26] MEDS: METOPROLOL TARTRATE 12.5 MG TABLET PO ×2 (09:56→21:17)
[2020-08-26] MEDS: FUROSEMIDE 40 MG TABLET PO (09:56)
[2020-08-26 12:12] LABS: Glucose Point of Care 201 mg/dl (65-105)
[2020-08-26] MEDS: INSULIN ASPART (*BKC) 100 UNITS/ML SUB-Q ×2 (12:16→16:10)
[2020-08-26] MEDS: ACETAMINOPHEN 325 MG TABLET 650 MG PO ×2 (15:14→21:17)
[2020-08-26] MEDS: RIVAROXABAN 20 MG TABLET PO (16:01)
[2020-08-26 16:09] LABS: Glucose Point of Care 211 mg/dl (65-105)
--- NOTE | 2020-08-26 18:50 | ECHO_ITS ---
Patient Info Name: Alberto Rasmussen Age: 79 years : 1940 Gender: Male Ht: 71 in Wt: 292 lbs BSA: 2.63 m2 HR: 79 bpm BP: 128 / 63 mmHg Technical Quality: Poor Exam Date: 08/26/2020 7:48 AM Exam Location: [facility] Patient Status: Inpatient Admit Date: 08/24/2020 Staff Ordering Physician: Mary Grace Resendiz PA-C Timber Watchman: Diane Miller RDCS Attending Provider: Reyna Joaquin M.A., MD Referring Physician: Martín MOSQUEDA; Exam Type: CA echo dop color flow w con Study Info Complete two-dimensional, color flow and Doppler transthoracic echocardiogram is performed with contrast to opacify the left ventricle and to improve the deliniation of the left ventricle endocardial borders. Contrast/Agitated Saline Contrast/Ag. Saline: Definity Amount: 4.00 ml Summary 1. Technically difficult study, suboptimal image quality. Echo contrast was used. Normal LV size, moderate LVH, LVEF about 60%. Inferoseptum appears hypokinetic. Severe biatrial enlargement. Mitral annular calcification, trivial MR. Aortic valve appears mildly calcified, mild aortic stenosis. Mild TR, moderate pulmonary hypertension, RVSP 54 mmHg. Left Ventricle Left ventricular chamber dimension is normal. Left ventricular systolic function is normal, estimated at 55-60%. There is moderately increased left ventricular wall thickness. Right Ventricle Right ventricular chamber dimension is normal. Right ventricular systolic function is normal. Left Atria Left atrial chamber dimension is severely enlarged. Right Atria Right atrial chamber dimension is severely enlarged. Aortic Valve There is mild aortic valve stenosis with a peak velocity of 140.88 cm/s, mean gradient of 3 mmHg, and aortic valve area of 2.60 cm2. There is trace aortic valve regurgitation. There is mild aortic valve calcification. Pulmonic Valve The pulmonic valve is not well visualized. Mitral Valve There is trace mitral valve regurgitation. There is mild mitral valve calcification. Tricuspid Valve The tricuspid valve leaflets are normal. There is mild tricuspid valve regurgitation. Moderate pulmonary hypertension, estimated pulmonary arterial systolic pressure is 54 mmHg. Pericardium/Pleural The pericardium appears epicardial fat pad. Aorta The aortic root size at the sinus of Valsalva is not well visualized. Left Ventricular Outflow Tract Name Value Normal LVOT 2D LVOT Diameter 1.96 cm LVOT Doppler LVOT Peak Velocity 122.04 cm/s LVOT Peak Gradient 3 mmHg LVOT Mean Gradient 2 mmHg LVOT VTI 23.21 cm LVOT VTI/AV VTI Ratio 0.86 LVOT Stroke Volume 69.89 ml LVOT CO 5.14 l/min LVOT CI 1.95 L/min/m2 Pulmonic Valve Name Value Normal
[2020-08-26 21:38] LABS: Glucose Point of Care 183 mg/dl (65-105)
[2020-08-27] VITALS (12 sets, daily range): BP systolic 127–147; BP diastolic 63–73; PULSE 72–85; RESP 16–20; TEMP 36.3–36.7; O2SAT 95–98; BMI 11.0
[2020-08-27] MEDS: ACETAMINOPHEN 325 MG TABLET 650 MG PO ×4 (02:36→20:38)
[2020-08-27 05:01] LABS: Basophils Absolute Auto 0.1 K/mm3 (0.0-0.1); Basophils Percent Auto 0.5 % (0.2-1.2); Eosinophils Absolute Auto 0.3 K/mm3 (0-0.3); Eosinophils Percent Auto 2.1 % (0-4.4); Hematocrit 34.3 % (42.0-52.0); Hemoglobin 10.6 g/dL (14.0-18.0); Immature Granulocyte Absolute 0.06 K/mm3 (0.00-0.031); Immature Granulocyte Percent A 0.5 % (0-0.5); Lymphocytes Absolute Auto 1.17 K/mm3 (0.9-3.2); Lymphocytes Percent Auto 9.2 % (18.3-44.2); Mean Corpuscular HGB Conc 30.9 g/dl (32-36); Mean Corpuscular Hemoglobin 28.3 pg (26-34); Mean Corpuscular Volume 91.7 fl (80-100); Mean Platelet Volume 11.9 fl (7.4-10.4); Monocytes Absolute Auto 1.4 K/mm3 (0.1-0.6); Monocytes Percent Auto 10.7 % (2.6-8.5); Neutrophils Absolute Auto 9.8 K/mm3 (1.3-6.7); Platelet Count Result 192 k/mm3 (150-375); Red Blood Count 3.74 M/mm3 (4.6-6.20); Red Cell Distribution Width 13.9 % (11.5-14.5); White Blood Count 12.8 K/mm3 (4.5-10.0)
[2020-08-27 05:18] LABS: Anion Gap 8 mmol/L (8-16); Blood Urea Nitrogen 24 mg/dL (9-20); Calcium 8.4 mg/dL (8.4-10.2); Carbon Dioxide 28 mmol/L (22-30); Chloride 100 mmol/L (98-107); Estimated CRCL calculation 80 ml/min; Estimated Glomerular Filt Rate > 60; Glucose 172 mg/dL (75-110); Magnesium 2.2 mg/dL (1.6-2.3); Potassium 4.4 mmol/L (3.4-5.0); Sodium 136 mmol/L (137-145)
[2020-08-27 07:05] LABS: Glucose Point of Care 160 mg/dl (65-105)
[2020-08-27] MEDS: FUROSEMIDE 40 MG TABLET PO (08:03)
[2020-08-27] MEDS: FOLIC ACID 1 MG TABLET PO (08:03)
[2020-08-27] MEDS: CEPHALEXIN 500 MG CAPSULE PO ×2 (08:03→20:39)
[2020-08-27] MEDS: METOPROLOL TARTRATE 12.5 MG TABLET PO ×2 (08:03→20:38)
[2020-08-27] MEDS: THIAMINE HCL 100 MG TABLET PO (08:04)
--- NOTE | 2020-08-27 09:24 | PM.IMPN ---
Progress Note: A&P Assessment and Plan (1) Pertrochanteric fracture of left femur: Qualifiers: Encounter type: initial encounter Fracture type: closed Qualified Code(s): S72.102A - Unspecified trochanteric fracture of left femur, initial encounter for closed fracture Code(s): S72.102A - Unspecified trochanteric fracture of left femur, initial encounter for closed fracture Status: Acute Assessment and Plan: Patient sustained a ground level fall at home. XR demonstrated intertrochanteric and subtrochanteric fracture of proximal left femur. Appreciate orthopedic recommendations - surgical and nonsurgical options have been discussed at length with patient and family. Seems patient's daughter is concerned with his motivation for therapy postoperatively given his history of medical noncompliance, thus family and Dr. Farias have agreed on conservative management without surgery at this time. Per ortho - Pt can be [id number] pivoting on right leg. Awaiting placement. (2) Confusion: Code(s): R41.0 - Disorientation, unspecified Status: Acute Assessment and Plan: Mild. Some nonsensical speech still noted today but he is oriented to self, place, year this morning. CT brain repeated yesterday which demonstrated evidence of prior infarcts with no acute intracranial findings. Discussed at length with daughter at bedside yesterday. We discussed the likelihood of hospital delirium, narcotic pain medications, and the expected/potential clinical course for an elderly patient with an untreated hip fracture with several medical comorbidities. Adjusted pain medications to schedule tylenol to hopefully use less narcotics while keeping him comfortable. Will repeat UA. (3) Fall from ground level: Code(s): W18.30XA - Fall on same level, unspecified, initial encounter Status: Acute Assessment and Plan: No known loss of consciousness. Lacerations to left elbow and left eyebrow were sutured in the ED. (4) DVT (deep venous thrombosis): Qualifiers: DVT location: lower extremity Affected thrombotic vein of extremity: tibial Chronicity: acute Laterality: right Qualified Code(s): I82.441 - Acute embolism and thrombosis of right tibial vein Code(s): I82.409 - Acute embolism and thrombosis of unspecified deep veins of unspecified lower extremity Status: Acute Assessment and Plan: Venous Dopplers of JENNI lower extremities obtained 08/25 demonstrated deep venous thrombosis in the right posterior tibial vein. Although his Xarelto (for a fib) was recently discontinued due to bleeding varicose veins of the legs, given his significant risk for CVA with chronic atrial fibrillation and a new DVT with risk for PE given his new fracture and immobility it is the general medical consensus to resume his Xarelto 08/25. Discussed with Dr Porter. Monitor closely for bleeding. (5) Atrial fibrillation: Qualifiers: Atrial fibrillation type: unspecified Qualified Code(s): I48.91 - Unspecified atrial fibrillation Code(s): I48.91 - Unspecified atrial fibrillation Status: Chronic Assessment and Plan: Longstanding history of chronic atrial fibrillation followed by Dr. Turcios. He was previously anticoagulated with Xarelto which was discontinued 08/15/2020 due to significant bleeding of bilateral lower extremity varicosities, restarted 08/25, see above. Rate controlled. Appreciate Cardiology recommendations - started metoprolol. (6) Hypertension: Qualifiers: Hypertension type: essential hypertension Qualified Code(s): I10 - Essential (primary) hypertension Code(s): I10 - Essential (primary) hypertension Status: Chronic
[2020-08-27] MEDS: HYDROmorphone HCL INJ (*CRX) 1 MG/ML SYR 0.5 MG IV PUSH (10:12)
[2020-08-27 11:45] LABS: Glucose Point of Care 164 mg/dl (65-105)
--- NOTE | 2020-08-27 12:43 | PM.PNORT ---
Progress Note: A&P Assessment and Plan (1) Pertrochanteric fracture of left femur: Qualifiers: Encounter type: initial encounter Fracture type: closed Qualified Code(s): S72.102A - Unspecified trochanteric fracture of left femur, initial encounter for closed fracture Code(s): S72.102A - Unspecified trochanteric fracture of left femur, initial encounter for closed fracture Status: Acute Assessment and Plan: 79-year-old male with a left peritrochanteric hip fracture. I was able to speak and person with his daughter again today in she reaffirmed desire for nonsurgical treatment which I think is reasonable for him. Plan is going to be for placementand likely comfort care. Following. Subjective Subjective Date/Time Seen: 08/27/20 12:43 Exam Const: General: cooperative, comfortable and no acute distress Nutritional Appearance: obese ( BMI 40.7) Psych: Other: Has had some episodes of evening confusion. Seems reasonable today. Objective Data Vital Signs Vital Signs: Vital Signs - 24 hr 08/26/20 14:00 08/26/20 16:00 08/26/20 20:00 Temperature 98.3 F Pulse Rate 87 85 79 Pulse Rate [Bilateral Pedal (Dorsalis Pedis)] 67 Respiratory Rate 16 Blood Pressure 143/68 H Pulse Oximetry 95 08/26/20 21:17 08/26/20 21:25 08/27/20 00:00 Temperature 97.9 F Pulse Rate 95 86 72 Pulse Rate [Bilateral Pedal (Dorsalis Pedis)] 85 Respiratory Rate 18 Blood Pressure 140/69 140/69 Pulse Oximetry 97 08/27/20 04:00 08/27/20 05:38 08/27/20 07:57 Temperature 98.0 F Pulse Rate 74 82 Pulse Rate [Bilateral Pedal (Dorsalis Pedis)] 75 72 Respiratory Rate 20 Blood Pressure 140/69 142/73 H Pulse Oximetry 98 08/27/20 08:00 08/27/20 08:03 08/27/20 12:00 Temperature Pulse Rate 75 77 77 Pulse Rate [Bilateral Pedal (Dorsalis Pedis)] Respiratory Rate Blood Pressure Pulse Oximetry Intake/Output Intake/Output: Intake & Output 08/24/20 08/25/20 08/26/20 08/27/20 23:59 23:59 23:59 23:59 Intake Total 806 / 806 100 / 100 370 / 370 Output Total 350 / 350 1475 / 1475 1500 / 1500 500 / 500 Balance -350 / -350 -669 / -669 -1400 / -1400 -130 / -130 Meds/Results Medications: Active Medications Generic Name Dose Route Start Last Admin Trade Name Freq PRN Reason Stop Dose Admin Acetaminophen 650 mg 08/26/20 21:00 08/27/20 08:03 Acetaminophen 325 Mg Tablet PO 650 mg Q6H HOA Administration Cephalexin HCl 500 mg 08/24/20 21:00 08/27/20 08:03 Cephalexin 500 Mg Capsule PO 08/29/20 09:01 500 mg Q12HR HOA Administration Chlordiazepoxide HCl 25 mg 08/24/20 18:54 08/26/20 01:38 Chlordiazepoxide (*Crx) 25 Mg Capsule PO 25 mg Q6H PRN Administration Withdrawal Dextrose 12.5 gm 08/25/20 14:37 Dextrose 50% 25 Gm/50 Ml Syringe IV PUSH PRN PRN Hypoglycemia Protocol Folic Acid 1 mg 08/25/20 09:00 08/27/20 08:03 Folic Acid 1 Mg Tablet PO 1 mg DAILY HOA Administration Furosemide 40 mg 08/25/20 09:00 08/27/20 08:03 Furosemide 40 Mg Tablet PO 40 mg DAILY HOA Administration Glucagon 1 mg 08/25/20 14:37 Glucagon For Inj 1 Mg Vial IM PRN PRN Hypoglycemia Protocol Glucose 15 gm 08/25/20 14:37 Glucose Oral Gel 15 Gm Of Glucse In 37.5 Gm Tube PO PRN PRN Hypoglycemia Protocol Dextrose 1,000 mls @ 100 mls/hr 08/25/20 14:37 Dextrose 5% 1,000 Ml IVPB PRN PRN Hypoglycemia Protocol Insulin Aspart 2 - 5 units 08/25/20 17:00 08/27/20 11:56 Insulin Aspart (*Bkc) 100 Units/Ml SUB-Q Not Given TIDWM HOA Protocol Lorazepam 1 mg 08/24/20 18:56 Lorazepam Inj (*Crx) 2 Mg/Ml Vial IV PUSH Q6H PRN Withdrawal AND CIWA > 8 Metoprolol Tartrate 12.5 mg 08/25/20 21:00 08/27/20 08:03 Metoprolol Tartrate 12.5 Mg Tablet PO 12.5 mg Q12HR HOA Administration Ondansetron HCl 4 mg 08/24/20 11:46 Ondansetron
--- NOTE | 2020-08-27 13:22 | PM.PNCARD ---
Progress Note: A&P Additional Plan 79-year-old man status post fall sustaining a femoral fracture which is going to be treated non operatively. He has chronic, not paroxysmal atrial fibrillation and his been put back on anticoagulation with Xarelto. Patient has no other active cardiac issues. It appears that plans are being made for placement in a skilled care facility. Ryan Turcios MD [facility] Subjective Date/time seen: Date of service: 08/27/20 13:22 Interval history: Follow-up visit in this 79-year-old man with chronic atrial fibrillation who requires no medication for rate control and entered the hospital with a fall sustaining a arnold trochanteric femoral fracture. Plans according to the chart are for placement at a local skilled care facility where hopefully he can recover and be able to ambulate in the future. Exam Const: General: comfortable and no acute distress Other: Pleasant obese elderly man in no distress HENMT: Mouth: Yes moist mucous membranes Eyes: Sclera: sclerae normal Pupils: Equal, round and reactive pupils present Neck: Neck: supple and no JVD Resp: Effort & Inspection: normal respiratory effort Auscultation: clear to auscultation bilaterally Cardio: Rhythm: abnormal rhythm irregularly irregular GI: Auscultation: normal bowel sounds Skin: General skin exam: normal color Neuro: Cognition (Neuro): normal cognition Objective Data Vital Signs Vital Signs: Vital Signs - 24 hr 08/26/20 14:00 08/26/20 16:00 08/26/20 20:00 Temperature 36.8 C Pulse Rate 87 85 79 Pulse Rate [Bilateral Pedal (Dorsalis Pedis)] 67 Respiratory Rate 16 Blood Pressure 143/68 H Pulse Oximetry 95 08/26/20 21:17 08/26/20 21:25 08/27/20 00:00 Temperature 36.6 C Pulse Rate 95 86 72 Pulse Rate [Bilateral Pedal (Dorsalis Pedis)] 85 Respiratory Rate 18 Blood Pressure 140/69 140/69 Pulse Oximetry 97 08/27/20 04:00 08/27/20 05:38 08/27/20 07:57 Temperature 36.7 C Pulse Rate 74 82 Pulse Rate [Bilateral Pedal (Dorsalis Pedis)] 75 72 Respiratory Rate 20 Blood Pressure 140/69 142/73 H Pulse Oximetry 98 08/27/20 08:00 08/27/20 08:03 08/27/20 12:00 Temperature Pulse Rate 75 77 77 Pulse Rate [Bilateral Pedal (Dorsalis Pedis)] Respiratory Rate Blood Pressure Pulse Oximetry Intake/Output Intake/Output: Intake & Output 08/24/20 08/25/20 08/26/20 08/27/20 23:59 23:59 23:59 23:59 Intake Total 806 100 370 Output Total 350 1475 1500 500 Balance -350 -669 -1400 -130 Meds/Results Medications: Active Medications Generic Name Dose Route Start Last Admin Trade Name Freq PRN Reason Stop Dose Admin Acetaminophen 650 mg 08/26/20 21:00 08/27/20 08:03 Acetaminophen 325 Mg Tablet PO 650 mg Q6H HOA Administration Cephalexin HCl 500 mg 08/24/20 21:00 08/27/20 08:03 Cephalexin 500 Mg Capsule PO 08/29/20 09:01 500 mg Q12HR HOA Administration Chlordiazepoxide HCl 25 mg 08/24/20 18:54 08/26/20 01:38 Chlordiazepoxide (*Crx) 25 Mg Capsule PO 25 mg Q6H PRN Administration Withdrawal Dextrose 12.5 gm 08/25/20 14:37 Dextrose 50% 25 Gm/50 Ml Syringe IV PUSH PRN PRN Hypoglycemia Protocol Folic Acid 1 mg 08/25/20 09:00 08/27/20 08:03 Folic Acid 1 Mg Tablet PO 1 mg DAILY HOA Administration Furosemide 40 mg 08/25/20 09:00 08/27/20 08:03 Furosemide 40 Mg Tablet PO 40 mg DAILY HOA Administration Glucagon 1 mg 08/25/20 14:37 Glucagon For Inj 1 Mg Vial IM PRN PRN Hypoglycemia Protocol Glucose 15 gm 08/25/20 14:37 Glucose Oral Gel 15 Gm Of Glucse In 37.5 Gm Tube PO PRN PRN Hypoglycemia Protocol Dextrose 1,000 mls @ 100 mls/hr 08/25/20 14:37 Dextrose 5% 1,000 Ml IVPB PRN PRN Hypoglycemia Protocol Insulin Aspart 2 - 5 units 08/25/20 17:00 08/27/20 11:56 Insulin Aspart (*Bkc) 100 Units/Ml SUB-Q Not Given TIDWM HOA
[2020-08-27] MEDS: chlordiazePOXIDE (*CRX) 25 MG CAPSULE PO (15:23)
[2020-08-27 15:24] LABS: Add Urine Microscopic? YES; Appearance Urine Clear (Clear); Bilirubin Urine Negative (Negative); Blood Urine 1+ (Negative); Color Urine Yellow (Yellow); Glucose Urine UA 2+ mg/dL (Negative); Ketones Urine Negative (Negative); Leukocyte Esterase Ur Trace LEU/UL (Negative); Mucus Urine Rare /lpf; Nitrate Urine Negative (Negative); Protein Urine Negative (Negative); Urobilinogen Urine Negative mg/dL (<2.0)
[2020-08-27] MEDS: RIVAROXABAN 20 MG TABLET PO (16:29)
[2020-08-27 16:41] LABS: Glucose Point of Care 222 mg/dl (65-105)
[2020-08-27] MEDS: INSULIN ASPART (*BKC) 100 UNITS/ML SUB-Q (16:41)
[2020-08-27] MEDS: oxyCODONE/ACETAMINOPHEN (*CRX) 5-325 MG TABLET 1 TABLET PO (17:17)
[2020-08-27 18:14] LABS: SARS-CoV-2 RNA PCR Negative
[2020-08-27 21:13] LABS: Glucose Point of Care 189 mg/dl (65-105)
[2020-08-28] VITALS (10 sets, daily range): BP systolic 119–148; BP diastolic 52–65; PULSE 63–96; RESP 16–18; TEMP 36.4; O2SAT 97–98; BMI 10.0
[2020-08-28] MEDS: ACETAMINOPHEN 325 MG TABLET 650 MG PO ×4 (02:38→20:38)
[2020-08-28 05:18] LABS: Basophils Absolute Auto 0.1 K/mm3 (0.0-0.1); Basophils Percent Auto 0.4 % (0.2-1.2); Eosinophils Absolute Auto 0.5 K/mm3 (0-0.3); Eosinophils Percent Auto 4.1 % (0-4.4); Hematocrit 34.7 % (42.0-52.0); Hemoglobin 10.7 g/dL (14.0-18.0); Immature Granulocyte Absolute 0.07 K/mm3 (0.00-0.031); Immature Granulocyte Percent A 0.6 % (0-0.5); Lymphocytes Absolute Auto 1.46 K/mm3 (0.9-3.2); Lymphocytes Percent Auto 12.4 % (18.3-44.2); Mean Corpuscular HGB Conc 30.8 g/dl (32-36); Mean Corpuscular Hemoglobin 28.5 pg (26-34); Mean Corpuscular Volume 92.3 fl (80-100); Mean Platelet Volume 12.1 fl (7.4-10.4); Monocytes Absolute Auto 1.2 K/mm3 (0.1-0.6); Monocytes Percent Auto 10.3 % (2.6-8.5); Neutrophils Absolute Auto 8.5 K/mm3 (1.3-6.7); Neutrophils Percent Auto 72.2 % (45.5-73.1); Platelet Count Result 194 k/mm3 (150-375); Red Blood Count 3.76 M/mm3 (4.6-6.20); Red Cell Distribution Width 13.8 % (11.5-14.5); White Blood Count 11.8 K/mm3 (4.5-10.0)
[2020-08-28 05:38] LABS: Anion Gap 5 mmol/L (8-16); Blood Urea Nitrogen 26 mg/dL (9-20); Calcium 8.5 mg/dL (8.4-10.2); Carbon Dioxide 33 mmol/L (22-30); Chloride 101 mmol/L (98-107); Estimated CRCL calculation 80 ml/min; Estimated Glomerular Filt Rate > 60; Glucose 159 mg/dL (75-110); Magnesium 2.3 mg/dL (1.6-2.3); Sodium 139 mmol/L (137-145)
[2020-08-28 07:42] LABS: Glucose Point of Care 151 mg/dl (65-105)
[2020-08-28] MEDS: METOPROLOL TARTRATE 12.5 MG TABLET PO ×2 (07:56→20:37)
[2020-08-28] MEDS: THIAMINE HCL 100 MG TABLET PO (07:56)
[2020-08-28] MEDS: FOLIC ACID 1 MG TABLET PO (07:56)
[2020-08-28] MEDS: CEPHALEXIN 500 MG CAPSULE PO ×2 (07:56→20:37)
[2020-08-28] MEDS: FUROSEMIDE 40 MG TABLET PO (07:56)
[2020-08-28] MEDS: oxyCODONE/ACETAMINOPHEN (*CRX) 5-325 MG TABLET 1 TABLET PO ×2 (07:57→18:40)
--- NOTE | 2020-08-28 09:54 | PM.IMPN ---
Progress Note: A&P Assessment and Plan (1) Pertrochanteric fracture of left femur: Qualifiers: Encounter type: initial encounter Fracture type: closed Qualified Code(s): S72.102A - Unspecified trochanteric fracture of left femur, initial encounter for closed fracture Code(s): S72.102A - Unspecified trochanteric fracture of left femur, initial encounter for closed fracture Status: Acute Assessment and Plan: Patient sustained a ground level fall at home. XR demonstrated intertrochanteric and subtrochanteric fracture of proximal left femur. Appreciate orthopedic recommendations - surgical and nonsurgical options have been discussed at length with patient and family. Seems patient's daughter is concerned with his motivation for therapy postoperatively given his history of medical noncompliance, thus family and Dr. Farias have agreed on conservative management without surgery at this time. Per ortho - Pt can be [id number] pivoting on right leg. Awaiting placement. (2) Confusion: Code(s): R41.0 - Disorientation, unspecified Status: Acute Assessment and Plan: Stable today. CT brain repeated yesterday which demonstrated evidence of prior infarcts with no acute intracranial findings. Discussed at length with daughter at bedside yesterday. We discussed the likelihood of hospital delirium, narcotic pain medications, and the expected/potential clinical course for an elderly patient with an untreated hip fracture with several medical comorbidities. Adjusted pain medications to schedule tylenol to hopefully use less narcotics while keeping him comfortable. Repeat UA looks good. (3) Fall from ground level: Code(s): W18.30XA - Fall on same level, unspecified, initial encounter Status: Acute Assessment and Plan: No known loss of consciousness. Lacerations to left elbow and left eyebrow were sutured in the ED. (4) DVT (deep venous thrombosis): Qualifiers: DVT location: lower extremity Affected thrombotic vein of extremity: tibial Chronicity: acute Laterality: right Qualified Code(s): I82.441 - Acute embolism and thrombosis of right tibial vein Code(s): I82.409 - Acute embolism and thrombosis of unspecified deep veins of unspecified lower extremity Status: Acute Assessment and Plan: Venous Dopplers of JENNI lower extremities obtained 08/25 demonstrated deep venous thrombosis in the right posterior tibial vein. Although his Xarelto (for a fib) was recently discontinued due to bleeding varicose veins of the legs, given his significant risk for CVA with chronic atrial fibrillation and a new DVT with risk for PE given his new fracture and immobility it is the general medical consensus to resume his Xarelto 08/25. Monitor closely for bleeding. (5) Atrial fibrillation: Qualifiers: Atrial fibrillation type: unspecified Qualified Code(s): I48.91 - Unspecified atrial fibrillation Code(s): I48.91 - Unspecified atrial fibrillation Status: Chronic Assessment and Plan: Longstanding history of chronic atrial fibrillation followed by Dr. Turcios. He was previously anticoagulated with Xarelto which was discontinued 08/15/2020 due to significant bleeding of bilateral lower extremity varicosities, restarted 08/25, see above. Rate controlled. Appreciate Cardiology recommendations - started metoprolol. (6) Hypertension: Qualifiers: Hypertension type: essential hypertension Qualified Code(s): I10 - Essential (primary) hypertension Code(s): I10 - Essential (primary) hypertension Status: Chronic Assessment and Plan: Blood pressures have been reasonable given his condition, last 119/52. Will
--- NOTE | 2020-08-28 11:46 | PM.PNCARD ---
Progress Note: A&P Assessment and Plan (1) Fall from ground level: Code(s): W18.30XA - Fall on same level, unspecified, initial encounter Status: Acute Assessment and Plan: 79-year-old male with CHF with preserved ejection fraction, atrial fibrillation not on anticoagulation (Anticoagulation reportedly discontinued due to recurrent bleeding from lower extremity varicosities); hypertension, type 2 diabetes mellitus, ?varicose veins; history of CVA. Patient presented with fall, and found to have Intertrochanteric and subtrochanteric fracture of proximal left femur. Patient is in persistent atrial fibrillation with controlled ventricular response. His anticoagulation was recently discontinued due to bleeding in the lower extremities. No active bleeding in the lower extremities at present. -patient has been seen by Orthopedic surgery, and conservative management is being pursued after conversation with patient's daughter, who according to patient is durable power of assistant district attorney. (2) Afib: Qualifiers: Atrial fibrillation type: unspecified Qualified Code(s): I48.91 - Unspecified atrial fibrillation Code(s): I48.91 - Unspecified atrial fibrillation Status: Chronic Assessment and Plan: Patient has persistent atrial fibrillation with heart rates mostly controlled. Continue to monitor on telemetry. As regards patient's anticoagulation, his rivaroxaban was recently discontinued due to bleeding in the lower extremities. Patient remains at significant CVA risk from atrial fibrillation. In addition, he was found to have DVT in the right lower extremity during this hospitalization, which also puts him at risk for pulmonary embolism. After discussion with the primary team, it would be reasonable to restart rivaroxaban for anticoagulation-both for atrial fibrillation and DVT. In the meantime, recommend lower extremity comprehensive venous duplex to assess for venous insufficiency. If patient has significant venous reflux, then endovascular ablation treatment would be appropriate. Patient's additional workup and treatment will depend on patient's and his family's wishes. Patient indicated that his daughter is the durable power of assistant district attorney. (3) History of CVA (cerebrovascular accident): Code(s): Z86.73 - Personal history of transient ischemic attack (TIA), and cerebral infarction without residual deficits Status: Acute Assessment and Plan: See above (4) DVT (deep venous thrombosis): Qualifiers: DVT location: lower extremity Affected thrombotic vein of extremity: tibial Chronicity: acute Laterality: right Qualified Code(s): I82.441 - Acute embolism and thrombosis of right tibial vein Code(s): I82.409 - Acute embolism and thrombosis of unspecified deep veins of unspecified lower extremity Status: Acute Assessment and Plan: See above Subjective Date/time seen: 08/28/20 11:46 Interval history: Mr. Rasmussen is an 79yo M admitted for left hip fracture, also found to have distal right leg DVT. He is resting comfortably in bed and says he is in no pain at present until he moves. He is answering questions appropriately but remains a little confused. He denies any chest pain or shortness of breath. Denies nausea, vomiting or abdominal pain. Date of service 08/28/2020: Resting comfortably without any hip pain. No chest pain shortness of breath Review of Systems Review of Systems: All systems reviewed & are unremarkable except as noted in HPI and below Constitutional: Constitutional: Denies weakness Eyes: Eyes: Denies blurry vision ENT: Denies nasal congestion Cardiovascular: Cardiovascular: Denies chest pain Respiratory: Respiratory: Denies dyspnea Gastrointestinal: Gastrointestinal: Denies abdominal pain Genitourinary: Genitourinary: Denies dysuria Musculoskeletal: Musculoskeletal: Denies neck pain Integumentary/Breasts: Skin/Breast: Denie
[2020-08-28 12:22] LABS: Glucose Point of Care 196 mg/dl (65-105)
--- NOTE | 2020-08-28 14:05 | PC.NURSE ---
Pt to US per stretcher. 08/28/20 1400
[2020-08-28] MEDS: RIVAROXABAN 20 MG TABLET PO (17:32)
[2020-08-28 18:31] LABS: Glucose Point of Care 173 mg/dl (65-105)
[2020-08-29] VITALS (9 sets, daily range): BP systolic 124–145; BP diastolic 56–65; PULSE 65–78; RESP 16–20; TEMP 36.2–36.6; O2SAT 96–98
[2020-08-29 00:06] LABS: Glucose Point of Care 176 mg/dl (65-105)
[2020-08-29] MEDS: ACETAMINOPHEN 325 MG TABLET 650 MG PO ×4 (02:58→20:34)
[2020-08-29 05:34] LABS: Basophils Absolute Auto 0.1 K/mm3 (0.0-0.1); Basophils Percent Auto 0.4 % (0.2-1.2); Eosinophils Absolute Auto 0.4 K/mm3 (0-0.3); Eosinophils Percent Auto 3.6 % (0-4.4); Hematocrit 33.3 % (42.0-52.0); Hemoglobin 10.4 g/dL (14.0-18.0); Immature Granulocyte Absolute 0.07 K/mm3 (0.00-0.031); Immature Granulocyte Percent A 0.6 % (0-0.5); Lymphocytes Absolute Auto 1.34 K/mm3 (0.9-3.2); Lymphocytes Percent Auto 11.4 % (18.3-44.2); Mean Corpuscular HGB Conc 31.2 g/dl (32-36); Mean Corpuscular Volume 89.8 fl (80-100); Mean Platelet Volume 11.9 fl (7.4-10.4); Monocytes Absolute Auto 1.3 K/mm3 (0.1-0.6); Monocytes Percent Auto 11.4 % (2.6-8.5); Neutrophils Absolute Auto 8.5 K/mm3 (1.3-6.7); Neutrophils Percent Auto 72.6 % (45.5-73.1); Platelet Count Result 208 k/mm3 (150-375); Red Blood Count 3.71 M/mm3 (4.6-6.20); Red Cell Distribution Width 13.7 % (11.5-14.5); White Blood Count 11.7 K/mm3 (4.5-10.0)
[2020-08-29 05:41] LABS: Anion Gap 6 mmol/L (8-16); Blood Urea Nitrogen 24 mg/dL (9-20); Calcium 8.3 mg/dL (8.4-10.2); Carbon Dioxide 31 mmol/L (22-30); Chloride 102 mmol/L (98-107); Estimated CRCL calculation 80 ml/min; Estimated Glomerular Filt Rate > 60; Glucose 150 mg/dL (75-110); Magnesium 2.3 mg/dL (1.6-2.3); Sodium 139 mmol/L (137-145)
[2020-08-29] MEDS: METOPROLOL TARTRATE 12.5 MG TABLET PO ×2 (08:57→20:34)
[2020-08-29] MEDS: FUROSEMIDE 40 MG TABLET PO (08:57)
[2020-08-29] MEDS: FOLIC ACID 1 MG TABLET PO (08:57)
[2020-08-29] MEDS: CEPHALEXIN 500 MG CAPSULE PO (08:57)
[2020-08-29] MEDS: THIAMINE HCL 100 MG TABLET PO (08:57)
[2020-08-29] MEDS: oxyCODONE/ACETAMINOPHEN (*CRX) 5-325 MG TABLET 1 TABLET PO ×3 (09:55→21:54)
--- NOTE | 2020-08-29 09:55 | PCPTNOTE ---
Attempted to see patient for PT, however unable to see patient due to left hip pain. Patient was up to chair in room and reported he did not want to move, patient agrees to do right LE exercises but when attempting right ankle pumps patient reported it was too painful with 10/10 pain. RN notified.
--- NOTE | 2020-08-29 11:31 | PM.PNCARD ---
Progress Note: A&P Assessment and Plan (1) Fall from ground level: Code(s): W18.30XA - Fall on same level, unspecified, initial encounter Status: Acute Assessment and Plan: 79-year-old male with CHF with preserved ejection fraction, atrial fibrillation not on anticoagulation (Anticoagulation reportedly discontinued due to recurrent bleeding from lower extremity varicosities); hypertension, type 2 diabetes mellitus, ?varicose veins; history of CVA. Patient presented with fall, and found to have Intertrochanteric and subtrochanteric fracture of proximal left femur. Patient is in persistent atrial fibrillation with controlled ventricular response. His anticoagulation was recently discontinued due to bleeding in the lower extremities. No active bleeding in the lower extremities at present. -patient has been seen by Orthopedic surgery, and conservative management is being pursued after conversation with patient's daughter, who according to patient is durable power of staff attorney. (2) Afib: Qualifiers: Atrial fibrillation type: unspecified Qualified Code(s): I48.91 - Unspecified atrial fibrillation Code(s): I48.91 - Unspecified atrial fibrillation Status: Chronic Assessment and Plan: Patient has persistent atrial fibrillation with heart rates mostly controlled. Continue to monitor on telemetry. As regards patient's anticoagulation, his rivaroxaban was recently discontinued due to bleeding in the lower extremities. Patient remains at significant CVA risk from atrial fibrillation. In addition, he was found to have DVT in the right lower extremity during this hospitalization, which also puts him at risk for pulmonary embolism. After discussion with the primary team, it would be reasonable to restart rivaroxaban for anticoagulation-both for atrial fibrillation and DVT. In the meantime, recommend lower extremity comprehensive venous duplex to assess for venous insufficiency. If patient has significant venous reflux, then endovascular ablation treatment would be appropriate. Patient's additional workup and treatment will depend on patient's and his family's wishes. Patient indicated that his daughter is the durable power of staff attorney. (3) History of CVA (cerebrovascular accident): Code(s): Z86.73 - Personal history of transient ischemic attack (TIA), and cerebral infarction without residual deficits Status: Acute Assessment and Plan: See above (4) DVT (deep venous thrombosis): Qualifiers: DVT location: lower extremity Affected thrombotic vein of extremity: tibial Chronicity: acute Laterality: right Qualified Code(s): I82.441 - Acute embolism and thrombosis of right tibial vein Code(s): I82.409 - Acute embolism and thrombosis of unspecified deep veins of unspecified lower extremity Status: Acute Assessment and Plan: See above DC planning. Follow-up Dr. Turcios Subjective Date/time seen: 08/29/20 11:31 Interval history: Mr. Rasmussen is an 79yo M admitted for left hip fracture, also found to have distal right leg DVT. He is resting comfortably in bed and says he is in no pain at present until he moves. He is answering questions appropriately but remains a little confused. He denies any chest pain or shortness of breath. Denies nausea, vomiting or abdominal pain. Date of service 08/29/2020: Sitting up in chair has some leg /hip pain No chest pain shortness of breath Review of Systems Review of Systems: All systems reviewed & are unremarkable except as noted in HPI and below Constitutional: Constitutional: Denies weakness Eyes: Eyes: Denies blurry vision ENT: Denies nasal congestion and Denies neck pain Cardiovascular: Cardiovascular: Denies chest pain, Denies palpitations and Denies dyspnea Respiratory: Respiratory: Denies dyspnea Gastrointestinal: Gastrointestinal: Denies abdominal pain Genitourinary: Genitourinary: Denies dys
[2020-08-29] MEDS: INSULIN ASPART (*BKC) 100 UNITS/ML SUB-Q ×2 (12:03→17:40)
--- NOTE | 2020-08-29 12:59 | PCPTNOTE ---
Patient refused treatment this session. Patient reported he is too tired to participate in therapy, asked patient if he would do right lower extremity exercises while in the chair, patient stated no, I'm just too tired. Asked patient if he wanted to get back in bed, patient declined, stated he would like to stay in the chair.
--- NOTE | 2020-08-29 14:11 | PM.DS ---
DS: Admitting Diagnosis Admitting Diagnosis Admitting Diagnosis: left hip fracture DS: Discharge Diagnosis Discharge Diagnosis (1) Pertrochanteric fracture of left femur: Qualifiers: Encounter type: initial encounter Fracture type: closed Qualified Code(s): S72.102A - Unspecified trochanteric fracture of left femur, initial encounter for closed fracture Code(s): S72.102A - Unspecified trochanteric fracture of left femur, initial encounter for closed fracture Status: Acute Assessment and Plan: Date of Admission 08/24/20 Date of Discharge 08/29/20 Mr. Rasmussen is a pleasant 79yo M with history of chronic atrial fibrillation, hypertension, [id number] type 2 diabetes, and diastolic congestive heart failure who presented to the ED for evaluation of ambulatory dysfunction and left hip pain after a mechanical ground-level fall at home. Imaging demonstrated intertrochanteric and subtrochanteric fracture of the proximal left femur. He was evaluated by orthopedic surgery, Dr. Farias. Several detailed discussions were held between providers, patient, and patient's daughter and ultimately the decision was made to pursue conservative management without surgical intervention. He was working on [id number] pivoting on the right leg with therapy. Pain control with Tylenol and Percocet. He sustained lacerations to his left eyebrow and left elbow which were sutured in the ED - detention staff can remove sutures anytime between 08/31/20 to 09/03/20 (7-10 days after placed). He follows with Dr. Turcios for his chronic atrial fibrillation. His Xarelto was recently discontinued due to significant bleeding to lower extremity varicosities. Venous Dopplers this admission revealed a distal right lower extremity posterior tibial DVT. It was the general medical consensus to resume his Xarelto and monitor for further bleeding given his significant risk for CVA and worsening VTE due to his AFib, immobility. Other chronic comorbidities were stable as outlined below. Venous Dopplers demonstrate reflux in the greater saphenous veins bilaterally - Dr. Porter mentioned he could possibly benefit from laser procedure for his varicosities pending these results. Detailed discussions held with patient's daughter regarding high morbidity/mortality rates of and untreated hip fracture in a patient her father's age. He has experienced some mild confusion which is stable today; limit narcotics. Overall he is hemodynamically stable for discharge to nursing facility today 08/29/2020. Prognosis guarded. Per ortho - Pt can be [id number] pivoting on right leg. Pain control. Urinary Cmgee catheter is intact for urinary retention and immobility - detention facility to attempt a voiding trial 09/02/2020. (2) Confusion: Code(s): R41.0 - Disorientation, unspecified Status: Acute Assessment and Plan: Stable today. CT brain repeated yesterday which demonstrated evidence of prior infarcts with no acute intracranial findings. Discussed at length with daughter at bedside. We discussed the likelihood of hospital delirium, narcotic pain medications, and the expected/potential clinical course for an elderly patient with an untreated hip fracture with several medical comorbidities. Adjusted pain medications to schedule tylenol to hopefully use less narcotics while keeping him comfortable. Repeat UA without evidence of infection. (3) Fall from ground level: Code(s): W18.30XA - Fall on same level, unspecified, initial encounter Status: Acute Assessment and Plan: No known loss of consciousness. Lacerations to left elbow and left eyebrow were sutured in the ED. Sutures need to be removed 7-10 days after being placed 08/24/20 (4) DVT (deep venous thrombosis):
--- NOTE | 2020-08-29 14:31 | PCPTNOTE ---
Attempted to see patient for PT at this time, however patient declined due to anticipated discharge.
[2020-08-29] MEDS: RIVAROXABAN 20 MG TABLET PO (16:13)
[2020-08-29 16:44] LABS: Glucose Point of Care 247 mg/dl (65-105)
[2020-08-29 16:44] LABS: Glucose Point of Care 158 mg/dl (65-105)
[2020-08-29 16:49] LABS: Glucose Point of Care 207 mg/dl (65-105)
--- NOTE | 2020-08-29 22:00 | PC.NURSE ---
CALLED [facility] TO INFORM THEM OF TRANSFER AND THAT PT HAD JUST RECEIVED PAIN PILL
== END 2020-08-29 22:00 | DRG 982 ==
LOC: ANHED 12:02 → ANH2MED 13:05
PROVIDERS: Emergency Medicine; Physician Assistant; Admitting Provider Internal Medicine; Emergency Provider Emergency Medicine; PCP Family Medicine; Visit Provider Family Medicine
DX: S72.102A Unspecified trochanteric fracture of left femur, initial encounter for closed fracture (principal); I47.1 Supraventricular tachycardia; I82.441 Acute embolism and thrombosis of right tibial vein; I48.20 Chronic atrial fibrillation, unspecified; I50.32 Chronic diastolic (congestive) heart failure; S51.012A Laceration without foreign body of left elbow, initial encounter; S01.81XA Laceration without foreign body of other part of head, initial encounter; W18.30XA Fall on same level, unspecified, initial encounter; I83.93 Asymptomatic varicose veins of bilateral lower extremities; I11.0 Hypertensive heart disease with heart failure; E11.9 Type 2 diabetes mellitus without complications; D69.6 Thrombocytopenia, unspecified; R41.0 Disorientation, unspecified; Z86.73 Personal history of transient ischemic attack (TIA), and cerebral infarction without residual deficits; Z79.82 Long term (current) use of aspirin; Z79.899 Other long term (current) drug therapy; Z87.891 Personal history of nicotine dependence
CPT/HCPCS: 12001; 12011; 36415; 70450; 71045; 73502; 80048; 80053; 80076; 81001; 82607; 82728; 82746; 82948; 83036; 83540; 83550; 83735; 84443; 85014; 85018; 85025; 85027; 85046; 85610; 85730; 86850; 86900; 86901; 87086; 93005; 93970; 96374; 96375; 96376; 97110; 97161; 97165; 97530; 97535; 99285; A9270; C8929; C9803; J0131; J1170; J1815; J2060; J2270; J2405; J3411; J3475; J7030; Q9957; U0003; U0005